=== PATIENT | male | born 1935 | race Caucasian/White ===

== ENCOUNTER 2019-04-23 12:14 | Day surgery (SDC) | payer MEDICARE, OTHER, SELFPAY ==
--- NOTE | 2019-04-20 07:29 | EKG12_ITS ---
Test Reason : PREOP Blood Pressure : / mmHG Vent. Rate : 054 BPM Atrial Rate : 054 BPM P-R Int : 174 ms QRS Dur : 104 ms QT Int : 438 ms P-R-T Axes : 047 012 028 degrees QTc Int : 415 ms Sinus bradycardia Incomplete right bundle branch block Confirmed by CHRISTY BORREGO, CHRISTINA ([id number]), supervising editor trailer CLARENCE BAZAN ([id number]) on 04/23/2019 1:20:15 PM Referred By: Delphine Estrada Confirmed By:CHRISTINA HARRISON MD
[2019-04-20 07:40] LABS: Hematocrit 36.2 % (40-54); Hemoglobin 11.7 g/dl (13.0-16.5); Mean Corp Hgb Conc 32.3 g/gl (32-36); Mean Corpuscular Hgb 26.3 pg (27.0-32.0); Mean Corpuscular Volume 81.3 fL (80-94); Mean Platelet Vol. 10.9 fl (6.2-12.0); Platelet Count 150 K/mm3 (150-450); RBC Distribution Width CV 14.9 % (11.6-14.6); RBC Distribution Width SD 43.2 fl (35.1-43.9); Red Blood Count 4.45 M/mm3 (4.6-6.2); White Blood Count 5.1 K/mm3 (4.4-11.0)
[2019-04-20 07:43] LABS: Scan Indicated on CBC? Y/N NO
[2019-04-20 08:02] LABS: Anion Gap 6 (5-15); BUN 20 mg/dL (7-18); BUN/Creat Ratio 19.4 RATIO (10-20); Calcium,Total 8.7 mg/dL (8.5-10.1); Chloride 109 mmol/L (98-107); Creatinine, Serum 1.03 mg/dL (0.70-1.30); EST Glomerular Filtration Rate 74 mL/min (>60); Est Glom Filt Rate - Afr Amer 89 mL/min (>60); Glucose 90 mg/dL (74-106); Potassium 4.3 mmol/L (3.5-5.1); Sodium Level 142 mmol/L (136-145)
--- NOTE | 2019-04-22 18:36 | PCM.PN.BLA ---
Progress Note See H&P scanned into the system No changes noted from that H&P - dated 04/16/19
[2019-04-23 12:39] VITALS: BP 115/76; PULSE 58; RESP 14; TEMP 36.7; O2SAT 98; BMI 25.5
[2019-04-23] MEDS: Cefazolin 2 GM in 0.9% Normal Saline 100 ML IV (13:53)
--- NOTE | 2019-04-23 13:54 | PCM.DC.HER ---
Discharge Diet: No Restrictions Discharge Activity: Return to Normal Activity, May not drive while taking narcotic pain medications. Lifting Restrictions: no lifting greater than 20 pounds for 4 weeks Call your doctor if your incision/area has: Continuous Slow Oozing, Foul Smelling Discharge Call your doctor if you observe: Fever of 101 or Higher Additional Dressing/Incision Instructions:: Leave dressing in place. May get wet in shower. Do not soak - no tub baths/swimming. You will have swelling and bruising in the area, do not be alarmed, this is normal. For significant scrotal swelling, can sit in recliner with legs elevated and place towel across upper thighs and then rest scrotum on top of this towel Additional Instructions: Ice packs to the area liberally for comfort. Recommended pain medication regimen: take 650 mg acetaminophen (Tylenol), then in three hours take 600 mg of ibuprofen (Motrin), then in 3 hours take 650 mg acetaminophen, then in three hours take 600 mg ibuprofen, and so on for about 2-3 days Take prescription narcotic pain medications for breakthrough pain and at night Allergies/Adverse Reactions: Allergies No Known Allergies Allergy (Verified 04/18/19 14:00) Medications to take at Discharge Aspirin [Aspir-Low] 81 mg PO DAILY 04/18/19 Atorvastatin Calcium [Lipitor] 20 mg PO QHS 04/18/19 Cyanocobalamin [Vitamin B12] 1,000 mcg IM Q30D 04/18/19 Ergocalciferol (Vitamin D2) [Vitamin D2] 50 mcg PO QWEEK 04/18/19 Finasteride [Proscar] 5 mg PO DAILY 04/18/19 Folic Acid 1 mg PO BID 04/18/19 Multivitamin [Multiple Vitamins] 1 ea PO DAILY 04/18/19 Ramipril [Altace] 1.25 mg PO DAILY 04/18/19 Ubidecarenone [Coq-10] 200 mg PO DAILY 04/18/19 Hydrocodone Bitart/Apap 5-325 [[place] 5MG-325MG] 1 tab PO Q8H PRN PRN 5 Days #15 tab 04/23/19 The following prescriptions were given: Hydrocodone Bitart/Apap 5-325 [[place] 5MG-325MG] 1 tab PO Q8H PRN PRN 5 Days #15 tab PRN Reason: Pain Prescription Printed Orders to be completed after discharge: 12 Lead EKG [[facility]] Time Frame: 04/18/19, Facility: [facility], Location: Cardiovascular Services Basic Metabolic Profile (BMP) Time Frame: 04/18/19, Facility: [facility], Location: Laboratory CBC-Complete Blood Cnt No Diff Time Frame: 04/18/19, Facility: [facility], Location: Laboratory Primary Care Physician: Loco Sims MD [Primary Care Provider] - Test Results: Test results from this visit will be discussed in further detail at your follow-up appointment, if applicable. Please Follow Up With: Delphine Estrada MD - call When: to be seen in 7-10 days, please call for date and time, thank you
--- NOTE | 2019-04-23 15:02 | OP.PCM_ITS ---
Report of Operation Date of Procedure: 04/23/19 Pre-Operative Diagnosis: right inguinal hernia Post-Operative Diagnosis: right inguinal hernia - direct and indirect Surgery/Procedure Performed:: right inguinal hernia - placement of preperitoneal mesh Description of Surgical Findings:: direct and indirect inguinal hernia noted, no femoral hernia Type of Anesthesia:: Local MAC Anesthesiologist: Morales Ingram Specimen's removed: none Estimated Blood Loss (mL): < 5 Fluids Replaced: 1000 ml RL Description of Procedure: After informed consent was obtained, patient was brought to the Operating Room. Appropriate time out protocol was followed. He was then placed in the supine position on the Operating Room table. The patient was then placed under anesthesia. The lower torso and the right groin area and genitalia were then prepped with a surgical skin preparation and appropriate sterile surgical drapes were placed. The anatomical landmarks were identified and after anesthetizing the skin and subcutaneous tissues with 1% xylocaine with epinephrine, a transverse skin incision was made above the level of the internal inguinal ring. The subcutaneous tissues were then sharply dissected down to the external oblique fascia and any hemorrhage was adequately controlled with electrocoagulation. The external oblique was then divided obliquely along the fibers and a muscle-splitting incision was then made to divide the internal oblique musculature and fascia. The transversalis fascia was then identified and was then incised parallel to the inferior hypogastric vessels. The preperitoneal space was then entered. Blunt dissection was then done to identify out Domenico's ligament, the pubic tubercle and a large area surrounding these landmarks for placement of the mesh. The femoral vessels were identified. The patient did not have a femoral hernia. The patient was also noted to have a fa scial defect in Hasselbach's triangle. There was an internal hernia sac identified. The peritoneal sac was then from the spermatic cord vessels using blunt dissection. The peritoneal sac was opened, there was no incarcerated contents. There was no evidence of any other opening in the peritoneum. The peritoneal opening that was created was then closed using a running 3-0 Vicryl suture. A medium size Bard 3 D mesh was then placed in the preperitoneal space such that it would be overlapping medially beyond the pubic tubercle and overlapping inferior to Domenico's ligament. A tack was then placed to secure the medial aspect of the mesh to the pubic tubercle. The mesh was then flattened up against the anterior abdominal wall. The patient was then placed in the reversed [place] position to ensure that the mesh was laid out properly. The mesh covered the entire wound opening also. The internal oblique fascia was then closed using interrupted 0 prolene suture. One of the sutures was used to lock the mesh into position. Hemostasis was carefully controlled with electrocoagulation. The external oblique fascia was then reapproximated using a running 0 Vicryl suture. This was carefully done to avoid any entrapment of blood vessels/nerves. Fior's fascia was closed using Vicryl suture in an interrupted simple fashion. The skin incision was closed with 4-0 Monocryl in a running subcuticular fashion. Cavilon and Steri-Strips were used to reinforce the skin closure and appropriate sterile dressing was applied. The patient was brought to the Recovery Room in stable condition. Grafts/Implants Used: Bard right sided 3D mesh, lot [id number], exp date 2023-09-13 - Complications none noted - Admit VTE Documentation VTE Present on Admission: Yes VTE Mechan Device Prophylaxis: SCD's
[2019-04-23 15:17] VITALS: BP 115/76; BP 125/71; PULSE 60; RESP 16; TEMP 36.7; O2SAT 100
[2019-04-23 15:22] VITALS: BP 115/76; BP 116/75; PULSE 63; RESP 16; O2SAT 98
[2019-04-23 15:27] VITALS: BP 115/76; BP 115/78; PULSE 64; RESP 16; O2SAT 97
[2019-04-23 15:32] VITALS: BP 115/76; BP 122/76; PULSE 62; RESP 16; TEMP 36.6; O2SAT 100
[2019-04-23 17:34] VITALS: BP 114/78; BP 115/76; PULSE 66; RESP 16; TEMP 36.8; O2SAT 99
== END 2019-04-23 17:36 | disposition home or self-care (01) ==
LOC: SDC 12:16 → AC 12:18
PROVIDERS: Family Provider Family Medicine; PCP Family Medicine; Referring Provider Surgery; Visit Provider Surgery
PROC: (CPT 49505; principal; 2019-04-23 13:45)
DX: K40.90 Unilateral inguinal hernia, without obstruction or gangrene, not specified as recurrent (principal); I25.10 Atherosclerotic heart disease of native coronary artery without angina pectoris; K21.9 Gastro-esophageal reflux disease without esophagitis; I10 Essential (primary) hypertension; N40.0 Benign prostatic hyperplasia without lower urinary tract symptoms; Z87.891 Personal history of nicotine dependence; Z95.5 Presence of coronary angioplasty implant and graft
CPT/HCPCS: 49505; 36415; 80048; 85027; 93005; J7120; C1781

== ENCOUNTER 2019-08-03 23:47 | Emergency (ER) | payer MEDICARE, OTHER, SELFPAY ==
[2019-08-03 23:48] VITALS: BP 136/86; PULSE 75; RESP 15; TEMP 36.5; O2SAT 98; BMI 25.8
--- NOTE | 2019-08-04 00:16 | CT_ITS ---
STUDY: CT BRAIN WITHOUT CONTRAST REASON FOR EXAM: Male, 83 years old. Weakness and confusion RADIATION DOSAGE (If Supplied By Facility): CTDIvol = ( 44.99 ) mGy, DLP = ( 815.79 ) mGycm TECHNIQUE: Transaxial CT imaging of the brain was performed without administration of intravenous contrast material. Individualized dose optimization techniques were used for this CT. COMPARISON: MRI of brain from 09/23/2017 FINDINGS: Normal soft tissue structures. Normal calvarium. Normal size ventricles and extra-axial spaces for the patient's age. There are areas of decreased attenuation within the white matter tracts of the supratentorial brain, consistent with microvascular disease changes. Normal basal ganglia and thalami. Normal brainstem. Normal cerebellum. There is no intracranial hemorrhage. There are no findings of an acute ischemic infarction. Normal visualized paranasal sinuses. CT/Brain/Head without Contrast IMPRESSION: Negative unenhanced CT scan of the brain for acute intracranial abnormality. Electronically Signed: Christopher Abdi, at 0:55 EDT Tel , Service support ,
--- NOTE | 2019-08-04 00:16 | RAD_ITS ---
STUDY: X-RAY CHEST REASON FOR EXAM: Male, 83 years old. Dizziness and confusion TECHNIQUE: PA and lateral COMPARISON: None. FINDINGS: The lungs are clear and expanded. There is no demonstrated pleural abnormality. Normal size heart. Normal mediastinum and andria. Normal visualized pulmonary arteries. There is atherosclerotic calcification of the aortic arch with tortuosity. Normal visualized thoracic spine. Normal visualized ribs, clavicles, and shoulders. There is no demonstrated abnormality of the visualized soft tissue structures of the upper abdomen. RAD/Chest PA and Lateral IMPRESSION: Negative x-ray examination of the chest. Electronically Signed: Christopher Abdi, at 0:57 EDT Tel , Service support ,
--- NOTE | 2019-08-04 00:16 | EKG12_ITS ---
Test Reason : Blood Pressure : / mmHG Vent. Rate : 064 BPM Atrial Rate : 064 BPM P-R Int : 158 ms QRS Dur : 110 ms QT Int : 416 ms P-R-T Axes : 063 020 034 degrees QTc Int : 429 ms Normal sinus rhythm Incomplete right bundle branch block Borderline ECG Confirmed by CHRISTY BORREGO, CHRISTINA ([id number]), online content editor ROBERT CHAVARRIA ([id number]) on 08/10/2019 11:18:42 AM Referred By: Confirmed By:CHRISTINA HARRISON MD
[2019-08-04 00:24] LABS: Absolute Lymphocyte Count 1.47 X10^3/uL (0.83-4.51); Absolute Neutrophil Count 3.5 X10^3/uL (2.0-7.7); Basophil# 0.04 X10^3/uL; Basophil% 0.7 % (0-1); Eosinophil# 0.25 X10^3/uL; Eosinophils% 4.3 % (0-5); Hematocrit 35.4 % (40-54); Hemoglobin 11.4 g/dL (13.0-16.5); Lymphocyte # 1.47 X10^3/ul (4.0); Lymphocyte % 25.2 % (19-41); Mean Corp Hgb Conc 32.2 g/dL (32-36); Mean Corpuscular Hgb 26.5 pg (27.0-32.0); Mean Corpuscular Volume 82.1 fL (80-94); Mean Platelet Vol. 11.3 fl (6.2-12.0); Monocyte# 0.62 X10^3/uL; Monocyte% 10.6 % (0-10); NRBC Flagged by Analyzer 0 % (0-5); Neutrophil # 3.45 X10^3/uL (2.7-7.7); Platelet Count 158 K/mm3 (150-450); RBC Distribution Width SD 45.1 fl (35.1-43.9); Red Blood Count 4.31 M/mm3 (4.6-6.2); White Blood Count 5.8 K/mm3 (4.4-11.0)
[2019-08-04] MEDS: Ondansetron 4 MG/2 ML Vial IV (00:29)
[2019-08-04 00:39] LABS: AST(SGOT) 31 U/L (15-37); Alanine Aminotransfer ALT/SGPT 29 U/L (16-61); Albumin, Serum 3.4 g/dL (3.2-5.0); Alkaline Phosphatase 93 U/L (45-117); Anion Gap 6 (5-15); BUN 19 mg/dL (7-18); BUN/Creat Ratio 17.9 RATIO (10-20); Calcium,Total 8.4 mg/dL (8.5-10.1); Chloride 106 mmol/L (98-107); Creatinine, Serum 1.06 mg/dL (0.70-1.30); EST Glomerular Filtration Rate 71 mL/min (>60); Est Glom Filt Rate - Afr Amer 86 mL/min (>60); Estimated Creatinine Clearance 56.43 ml/min; Globulin 3.3 g/dL (2.2-4.2); Glucose 104 mg/dL (74-106); Potassium 4.1 mmol/L (3.5-5.1); Protein, Total 6.7 g/dL (6.4-8.2); Sodium Level 140 mmol/L (136-145)
--- NOTE | 2019-08-04 00:47 | ED.DCSUM_ITS ---
- ER Visit Summary Date of Service: 08/04/19 Chief Complaint: Near syncope History of Present Illness: The patient is a 83 M who presents the emergency department feeling confused and near syncopal. He tells me that earlier today he felt fine. Him his and at the dinner he had spaghetti with sausage. He came home and took a shower. After the shower he felt that he needed to sit down. He felt like he might pass out and felt nauseated. He laid down and fell asleep. woke him up and she states that he seems a bit confused and seems to be walking funny. He denies any chest pain shortness of breath or headache. He denies any paresthesias loss of sensation or focal neurologic deficits. No visual changes. No changes in medications. He has a history of hypertension high cholesterol. He had a hernia repair earlier this year that he recovered fine from. He had a heart cath with stents placed in 2001. Physical Examination: Afebrile vital signs are stable Gen: Well-nourished well-developed Head: Normocephalic atraumatic Eyes: Perrl EOMI ENT: TMs clear no rhinorrhea moist mucous membranes Neck: Supple no lymphadenopathy no JVD nontender CVS: Regular rate rhythm no murmurs normal S1-S2 Respiratory: No distress clear to auscultation bilaterally chest nontender Abdomen: Soft nontender nondistended normal bowel sounds no masses Back: Nontender Extremity: Nontender no edema Skin: Normal color no rash Neuro: alert orientated ?3 CN II-XII intact normal strength sensation reflexes cerebellar NIH 0 Psych: Normal affect normal mood Test Results: EKG shows a normal sinus rhythm at a rate of 64. Patient's hemoglobin is 11.4 which is chronic for him. Rest of his labs are negative. Chest x-ray and CT brain negative. Emergency Department Course and Treatment: Patient ambulated to the bathroom without any difficulty. He is remained stable. At this point patient be discharged home return if worsening or concerns follow-up with primary care Impression: 1. Near syncope This note was generated with [employer]akimb[employer] software. It may contain incorrect words, spelling, and punctuation that were not noted in review of the chart prior to signing ED Disposition - Plan for ED Patient: Disposition: Home or Assisted Living Instructions: NEAR SYNCOPE, Unknown Referrals: Loco Sims MD [Primary Care Provider] - 1 Week
[2019-08-04 01:02] LABS: Mucous, Urine 0 SEEN /hpf (<or=2+); Red Blood Cells-Urine 0 SEEN /hpf (0-5); Squamous Epithelial Cells - UA 0 SEEN /hpf (0-5); White Blood Cells 0 SEEN /hpf (0-5)
[2019-08-04 01:03] LABS: Color, Urine Yellow (Yellow); Glucose, Dipstick Normal (Normal); Ketone-Dipstick Negative (Negative); Leukocyte Esterase-Dipstick Negative /ul (Negative); Nitrite-Dipstick Negative (Negative); Occult Blood-Urine Negative /ul (Negative); Protein-Dipstick Negative (Negative); Urine Bilirubin Dipstick Negative (Negative); Urine Clarity Clear (Clear); Urine Urobilinogen Normal (Normal)
[2019-08-04 01:10] LABS: Bacteria RARE /hpf (None Seen)
[2019-08-04 01:46] VITALS: BP 122/72; PULSE 98; RESP 16; O2SAT 97
== END 2019-08-04 02:13 | disposition home or self-care (01) ==
PROVIDERS: Emergency Provider Emergency Medicine; Family Provider Family Medicine; PCP Family Medicine
DX: R55 Syncope and collapse (principal); E78.00 Pure hypercholesterolemia, unspecified; I10 Essential (primary) hypertension; R11.0 Nausea; Z87.891 Personal history of nicotine dependence
CPT/HCPCS: 70450; 71046; 80053; 81001; 84484; 85025; 93005; 96374; 99284; J2405

== ENCOUNTER → 2020-06-12 06:28 | Outpatient (CLI) | payer MEDICARE, OTHER, SELFPAY ==
[2020-05-28 15:05] VITALS: BMI 25.8
--- NOTE | 2020-06-12 06:29 | ECHOD_ITS ---
Reason For Study: CAD/ASHD Procedure This was a 2D Doppler, Color Flow transthoracic echocardiogram. Exam performed in department. Left Ventricle Normal LV size. Left ventricular systolic function is normal. The estimated ejection fraction is 65 %. Stage 1 diastolic dysfunction. No regional wall motion abnormalities noted. Right Ventricle Normal RV size. Normal systolic function. Atria Normal left atrium. Normal right atrium. Hypermobile atrial septum. Bubble contrast study negative for right to left interatrial shunt. Mitral Valve There is moderate mitral annular calcification. Mild (1+) eccentric mitral valve insufficiency. Tricuspid Valve Normal tricuspid valve. Mild (1+) tricuspid valve insufficiency. Pulmonary artery systolic pressure is 33 mmHg. Aortic Valve Trisinus/trileaflet aortic valve. Moderate focal aortic valve calcification. Aortic sclerosis, no stenosis. Pulmonic Valve Normal pulmonic valve. Great Vessels Normal aortic root. The pulmonary artery is normal size. Normal inferior vena cava. Pericardium/Pleural No pericardial effusion. Medication Performed a rapid injection of agitated mix of 9 cc saline and 1cc air to assess for atrial septal defect. MMode/2D Measurements & Calculations LVIDd: 4.4 cm IVSd: 1.2 cm Ao root diam: 3.3 cm LVIDs: 2.9 cm LVPWd: 1.1 cm RVDd: 4.7 cm FS: 34.0 % LAV(MOD-bp): 70.1 ml LA A4 area: 20.4 cm2 LA dimension(2D): 3.3 cm LAV(MOD-bp) Indexed: 35.9 ml/m2 LAV(MOD-sp2): 78.4 ml LAV(MOD-sp4): 58.9 ml RA A4 area: 21.2 cm2 Doppler Measurements & Calculations MV E max enrique: 70.6 cm/sec Lat Peak E' Enrique: 6.1 cm/sec Med Peak E' Enrique: 5.4 cm/sec MV A max enrique: 90.6 cm/sec E/E' lat: 11.5 E/E' med: 13.2 MV E/A: 0.78 Ao V2 max: 144.9 cm/sec LV V1 max: 125.5 cm/sec PA V2 max: 151.2 cm/sec Ao max P.4 mmHg LV V1 max P.3 mmHg Ao V2 mean: 95.1 cm/sec Ao mean P.0 mmHg Ao V2 VTI: 27.4 cm TR max enrique: 273.0 cm/sec TR max P.8 mmHg Interpretation Summary Hypermobile atrial septum. Normal LV size. Left ventricular systolic function is normal. The estimated ejection fraction is 65 %. Pulmonary artery systolic pressure is 33 mmHg. Stage 1 diastolic dysfunction. Moderate focal aortic valve calcification. Aortic sclerosis, no stenosis. Ordering Physician: Alex Andrade Referring Physician: Loco Sims Performed By: Sera Prater, SEANCS, RVT
--- NOTE | 2020-06-12 08:44 | STRESSREP ---
Stress Test Report Exercise myocardial perfusion stress test. 84-year-old male with a history of chest pain. Stress protocol: Resting EKG demonstrates sinus bradycardia with a rate of 56 bpm normal intervals are noted resting blood pressure is 154/84 mmHg. The patient exercised according to regular Jagdish protocol for a total duration of 7 minutes and 31 seconds. The maximum heart rate attained was 150 bpm which was 108% of maximum predicted heart rate the maximum workload was 9.3 metabolic equivalents. At rest there were no ST or T wave changes noted to suggest ischemia peak exercise upsloping ST changes were noted with no meet the criteria for ischemia. No clinical angina was noted the test was terminated due to dyspnea. The resting blood pressure was 154/84 with a peak blood pressure 162/74 which was normal blood pressure response to exercise. Myocardial perfusion protocol. 11.5 mCi of technetium 99m sestamibi was injected at rest. The patient exercised according to regular Jagdish protocol and at peak exercise 32.1 mCi of technetium 99m sestamibi was injected stress images were obtained stress and rest images were reconstructed and compared in the short axis vertical long horizontal long axis. Gated images were also obtained Perfusion SPECT analysis: Review of the stress images demonstrate normal uptake of tracer noted in all areas of the myocardium the resting images similar demonstrate normal uptake of tracer noted in all areas of the myocardium. No areas of reversibility are noted suggest ischemia no previous infarct is noted. Gated SPECT analysis: The gated ejection fraction is 72%. Conclusion: Normal exercise myocardial perfusion stress test. Preserved ejection fraction. Excellent functional capacity.
== END ==
PROVIDERS: PCP Family Medicine; Referring Provider Internal Medicine Cardiovascular Disease; Visit Provider Internal Medicine Cardiovascular Disease
DX: R55 Syncope and collapse (principal); I25.10 Atherosclerotic heart disease of native coronary artery without angina pectoris; Z95.5 Presence of coronary angioplasty implant and graft
CPT/HCPCS: 78452; 93017; 93306; A9500; A4216

== ENCOUNTER → 2020-07-17 12:52 | Outpatient (CLI) | payer MEDICARE, OTHER, SELFPAY ==
[2020-05-28 15:05] VITALS: BMI 25.8
== END ==
PROVIDERS: PCP Family Medicine; Referring Provider Physician Assistant Medical; Visit Provider Physician Assistant Medical
DX: I25.10 Atherosclerotic heart disease of native coronary artery without angina pectoris (principal); I45.10 Unspecified right bundle-branch block; R00.1 Bradycardia, unspecified
CPT/HCPCS: 93225; 93226

== ENCOUNTER 2021-10-16 11:20 | Emergency (ER) | payer MEDICARE, OTHER, SELFPAY ==
[2021-10-16 11:21] VITALS: BP 150/83; PULSE 59; RESP 16; TEMP 36.8; O2SAT 98; BMI 25.8
--- NOTE | 2021-10-16 12:31 | EKG12_ITS ---
Test Reason : DIZZINESS Blood Pressure : / mmHG Vent. Rate : 055 BPM Atrial Rate : 055 BPM P-R Int : 170 ms QRS Dur : 104 ms QT Int : 454 ms P-R-T Axes : 019 003 017 degrees QTc Int : 434 ms Sinus bradycardia Increased R/S ratio in V1, consider early transition or posterior infarct Abnormal ECG Confirmed by ISAAC BORREGO, MERON ([id number]), communications editor BALDEV MASSEY ([id number]) on 10/21/2021 11:02:54 AM Referred By: MELY Confirmed By:MERON GRAY MD
--- NOTE | 2021-10-16 12:31 | CT_ITS ---
STUDY: CT BRAIN WITHOUT CONTRAST REASON FOR EXAM: Male, 85 years old. Dizziness, concern for intracranial hemorrhage. RADIATION DOSAGE (If Supplied By Facility): CTDIvol = ( 44.99 ) mGy, DLP = ( 829.85 ) mGycm TECHNIQUE: Transaxial CT imaging of the brain was performed without administration of intravenous contrast material. Individualized dose optimization techniques were used for this CT. COMPARISON: No relevant priors. FINDINGS: Normal soft tissue structures. Normal calvarium. Normal size ventricles and extra-axial spaces for the patient''s age. There are areas of decreased attenuation within the white matter tracts of the supratentorial brain, consistent with microvascular disease changes. Normal basal ganglia and thalami. Normal brainstem. Normal cerebellum. There is no intracranial hemorrhage. There are no findings of an acute ischemic infarction. Atherosclerotic calcifications of the cavernous internal carotid arteries. Mild posterior thickening of the right maxillary sinus. CT/Brain/Head without Contrast IMPRESSION: No acute intracranial process. Electronically Signed: Brian Molina, at 13:11 EST Tel , Service support ,
--- NOTE | 2021-10-16 12:33 | EX.ED.DYSGE1 ---
HPI History of Present Illness Chief Complaint: Dizziness Detail of Chief Complaint: Dizziness Informant: patient Narrative Narrative: Patient presents to the emergency department complaint of dizziness that started this morning. Patient states that he went to the bathroom when he came back and laid on the bed he felt like things were spinning around and round. Patient states that when he looks up quickly he has the sensation like he is in a pass out. Patient denies any chest pain or shortness of breath. He has not had symptoms like this before. Denies recent illness. He does have history of anemia, BPH, high cholesterol, and CHF. Patient has had his Covid vaccine and booster. Prior similar symptoms: No PFSH PFSH Medical History Anemia Atherosclerotic heart disease of [place] coronary artery without angina pectoris BPH (benign prostatic hyperplasia) Bradycardia Chronic diastolic (congestive) heart failure Diverticulosis GERD (gastroesophageal reflux disease) Hyperlipidemia Kidney stones Mitral annular calcification Pulmonary nodule Right bundle branch block (RBBB) Home Medications aspirin 81 mg PO DAILY 04/18/19 [History Last Taken Unknown] atorvastatin 20 mg PO QHS 04/18/19 [History Last Taken Unknown] coenzyme Q10 200 mg PO QHS 04/18/19 [History Last Taken Unknown] folic acid 1 mg PO BID 04/18/19 [History Last Taken Unknown] multivitamin 1 ea PO DAILY 04/18/19 [History Last Taken Unknown] cholecalciferol (vitamin D3) 1,250 mcg (50,000 unit) capsule 1,250 mcg PO QWEEK 05/28/20 [History Last Taken Unknown] sildenafil 50 mg tablet 50 mg PO DAILY PRN 05/28/20 [History Last Taken Unknown] metoprolol tartrate 25 mg tablet 12.5 mg PO BID #30 tab 10/28/20 [Rx Last Taken Unknown] cyanocobalamin (vitamin B-12) 1,000 mcg/mL injection solution 1,000 mcg IM Q4W PRN ml 06/04/21 [History Last Taken Unknown] meclizine 25 mg PO TID PRN #14 tab 10/16/21 [Rx Last Taken Unknown] ondansetron 4 mg PO Q8H PRN PRN #10 tab 10/16/21 [Rx Last Taken Unknown] Allergy/AdvReac Type Severity Reaction Status Date / Time No Known Allergies Allergy Verified 10/16/21 11:23 Family History Mother Heart disease Brother Cancer Brother Cancer Surgical History History of coronary artery stent placement (07/19/02) History of herniorrhaphy History of left heart catheterization (07/18/02) History of shoulder surgery Social History Smoking Status: Former smoker ROS ROS ED ROS Narrative Dizziness Constitutional Constitutional ED: Reports systems reviewed and no addt'l complaints, except as documented; Denies body ache(s), change in weight or chills Eyes Eyes: Denies acute decrease in peripheral vision, change in vision, double vision or loss of vision ENT ENT ED: Reports none; Denies ear pain, lip swelling, loss taste/smell, neck pain, otalgia or sore throat Cardiovascular Cardiovascular: Reports none; Denies abdominal pain, chest pain with activity, leg edema, lightheadedness, palpitations, rapid heart rate or syncope Respiratory/Chest Respiratory/Chest: Reports none; Denies change in mental status, dry cough, dyspnea, hemoptysis, shortness of breath at rest or shortness of breath with exertion Gastrointestinal Gastrointestinal: Reports none; Denies abdominal pain, change in stool character, diarrhea, hematemesis, hematochezia, melena, rectal bleeding or vomiting Genitourinary Genitourinary ED: Reports none; Denies abdominal discomfort, anuria, dysuria, genital pain or polyuria Musculoskeletal Musculoskeletal: Reports none; Denies arthralgias, back pain, difficulty walking, extremity pain, muscle weakness or myalgias Integumentary Reports none; Denies abscess or rash Neurologic Neurologic: Reports none; Denies abnormal gait, confusion, focal weakness, frequent falls, headache(s), loss of vision, numbness, paresthesias, radicular pain, vertigo or weakness Psychiatric Psychiatric: Reports systems reviewed and no addt'l complaints, except as documented and none; Denies behavioral changes, confusion, difficulty concentrating, hallucinations, suicidal ideation, tactile hallucinations or visual hallucinations Endocrine Endocrinology: Denies none, cold intolerance, excessive sweating, fatigue or heat intolerance Hematologic/Lymphatic Hematologic/Lymphatic: Reports none; Denies anemia, easy bleeding or easy bruising Allergic/Immunologic Allergic/Immunologic ED: Denies as per HPI, none, lip swelling, mouth swelling, throat swelling, tongue swelling or hives EXAM Physical Exam Const Vital Signs: 10/16/21 11:21 10/16/21 12:14 10/16/21 13:59 Temperature 98.2 F Temperature Source Temporal Pulse Rate 59 L Pulse Rate [Lying] 55 L Pulse Rate [Sitting] 65 Pulse Rate [Standing] 70 Respiratory Rate 16 Respiratory Effort Normal Non-Labored Blood Pressure 150/83 H Blood Pressure [Lying] 139/75 H Blood Pressure [Sitting] 147/81 H Blood Pressure [Standing] 166/73 H Blood Pressure Mean 105 Blood Pressure Mean [Lying] 96 Blood Pressure Mean [Sitting] 103 Blood Pressure Mean [Standing] 104 Pulse Ox 98 Oxygen Delivery Method Room Air Positive well nourished and well developed General Appearance ED: well developed and NAD HEENT Reports TM's clear and moist mucous membranes normocephalic and atraumatic; Negative for trauma or tenderness Tympanic Membrane ED: Yes TM's clear Eyes PERRL and EOMs intact bilaterally General Eye ED: Negative for pale conjunctiva or scleral icterus Neck no lymphadenopathy, supple and no JVD General: Negative for tenderness Chest Wall inspection of chest normal and palpation of chest normal Chest: Negative for tenderness Resp normal respiratory effort and clear to auscultation bilaterally Effort and Inspection: Negative for respiratory distress or pain with movement Auscultation: Negative for rhonchi, wheezes or diminished lung sounds Cardio regular rate, regular rhythm, S1 normal heart sound, S2 normal heart sound and no murmurs Peripheral Pulses: pulses 2+ throughout GI normal to inspection, nondistended, normoactive bowel sounds, soft to palpation, non-tender, non-distended and no masses Back/Spine no CVA tenderness and no thoracic nor lumbar tenderness Extremity normal to inspection Extremity Narrative: Hallpike maneuver was negative for nystagmus General Extremety ED: Negative for edema General Extremity: Negative for edema Neuro oriented x3, CN's II-XII intact bilaterally, no sensory deficits noted and gait normal Neuro Narrative: Finger-nose and heel rowe testing within normal limits, negative Romberg, negative pronator drift. Hallpike maneuver performed did not elicit any nystagmus or symptoms. Sensorium / Orientation: awake, alert, oriented to person, oriented to place and oriented to time Motor Exam: strength 5/5 throughout and strength abnormal Psych mental status grossly normal Skin no rashes or lesions noted and no wounds MDM MDM MDM Narrative Medical decision making narrative: IV line established on arrival. Orthostatic vital signs were negative. Patient was given Antivert and Zofran and is dizziness essentially resolved. Scan of his brain was unremarkable and lab work and EKG were unremarkable. At this point suspect likely benign positional vertigo. He is advised to follow-up with ENT. Patient given a prescription for Zofran and Antivert. Patient advised to return if condition should worsen anyway. Lab Data Attestation: I reviewed the patient's lab results. Labs: Laboratory Results - last 24 hr 10/16/21 10/16/21 12:11 12:11 WBC 6.3 RBC 4.14 L Hgb 10.9 L Hct 33.7 L MCV 81.4 MCH 26.3 L MCHC 32.3 RDW Std Deviation 42.3 RDW Coeff of Radu 14.6 Plt Count 167 MPV 11.0 Immature Gran % (Auto) 0.300 Neut % (Auto) 80.0 H Lymph % (Auto) 11.6 L [place] % (Auto) 6.8 Eos % (Auto) 0.8 Baso % (Auto) 0.5 Absolute Neuts (auto) 5.0 Absolute Lymphs (auto) 0.73 L Nucleated RBC % 0 Sodium 140 Potassium 4.6 Chloride 109 H Carbon Dioxide 27.0 Anion Gap 4 L BUN 17 Creatinine 0.96 Estim Creat Clear Calc 58.30 Est GFR (MDRD) Af Amer 96 Est GFR (MDRD) Non-Af 79 BUN/Creatinine Ratio 17.7 Glucose 89 Calcium 8.9 Troponin I High Sens 8 Radiography Diagnostic Testing: Clinical Impression(s) from Imaging Studies Brain CT 10/16/21 12:31 IMPRESSION: No acute intracranial process. Electronically Signed: Brian Molina, at 13:11 EST Tel , Service support , Discharge Plan Triage Chief Complaint: Dizziness ED Provider: Ashleigh Veloz Dx/Rx/DC Orders Clinical Impression: Vertigo Instructions: Dizziness Vertigo and Balance ..., ED Vertigo, Unspecified Prescriptions: New ondansetron [ondansetron] 4 MG tablet 4 mg PO Q8H PRN PRN (Reason: Nausea) Qty: 10 RF: 0 meclizine 25 mg tablet 25 mg PO TID PRN (Reason: dizziness) Qty: 14 RF: 0 No Action cholecalciferol (vitamin D3) 1,250 mcg (50,000 unit) capsule 1,250 mcg PO QWEEK RF: 0 sildenafil [Viagra] 50 mg tablet 50 mg PO DAILY PRNRF: 0 multivitamin 1 EACH tablet 1 ea PO DAILY RF: 0 atorvastatin 20 MG tablet 20 mg PO QHS RF: 0 aspirin 81 MG tablet,delayed release (DR/EC) 81 mg PO DAILY RF: 0 folic acid 1 MG tablet 1 mg PO BID RF: 0 coenzyme Q10 100 MG capsule 200 mg PO QHS RF: 0 cyanocobalamin (vitamin B-12) 1,000 mcg/mL solution 1,000 mcg IM Q4W PRNRF: 0 metoprolol tartrate 25 mg tablet 12.5 mg PO BID Qty: 30 RF: 6 Primary Care Provider: Loco Sims Referrals: Darrian Castelan MD [STAFF PHYSICIAN] - 3-5 Days Loco Sims MD [Primary Care Provider] - 3-5 Days Disposition Disposition: Home, Self Care
[2021-10-16] MEDS: Meclizine HCl 25 MG Tablet PO (12:44)
[2021-10-16] MEDS: 0.9% Normal Saline 1,000 ML 150 ML IV (12:44)
[2021-10-16] MEDS: Ondansetron 4 MG/2 ML Vial IV (12:44)
[2021-10-16 12:45] LABS: Absolute Lymphocyte Count 0.73 X10^3/uL (0.83-4.51); Basophil# 0.03 X10^3/uL; Basophil% 0.5 % (0-1); Eosinophil# 0.05 X10^3/uL; Eosinophils% 0.8 % (0-5); Hematocrit 33.7 % (40-54); Hemoglobin 10.9 g/dL (13.0-16.5); Lymphocyte # 0.73 X10^3/ul (0.83-4.51); Lymphocyte % 11.6 % (19-41); Mean Corp Hgb Conc 32.3 g/dL (32-36); Mean Corpuscular Hgb 26.3 pg (27.0-32.0); Mean Corpuscular Volume 81.4 fL (80-94); Monocyte# 0.43 X10^3/uL; Monocyte% 6.8 % (0-10); NRBC Flagged by Analyzer 0 % (0-5); Neutrophil # 5.04 X10^3/uL (2.7-7.7); Platelet Count 167 K/mm3 (150-450); RBC Distribution Width CV 14.6 % (11.6-14.6); RBC Distribution Width SD 42.3 fl (35.1-43.9); Red Blood Count 4.14 M/mm3 (4.6-6.2); White Blood Count 6.3 K/mm3 (4.4-11.0)
[2021-10-16 12:59] LABS: Anion Gap 4 (5-15); BUN 17 mg/dL (7-18); BUN/Creat Ratio 17.7 RATIO (10-20); Calcium,Total 8.9 mg/dL (8.5-10.1); Chloride 109 mmol/L (98-107); Creatinine, Serum 0.96 mg/dL (0.70-1.30); EST Glomerular Filtration Rate 79 mL/min (>60); Est Glom Filt Rate - Afr Amer 96 mL/min (>60); Glucose 89 mg/dL (74-106); Potassium 4.6 mmol/L (3.5-5.1); Sodium Level 140 mmol/L (136-145); Troponin-I HS 8 pg/mL (3.0-78.0)
[2021-10-16 13:59] VITALS: BP 139/75; BP 147/81; BP 166/73; PULSE 55; PULSE 65; PULSE 70
== END 2021-10-16 14:48 | disposition home or self-care (01) ==
PROVIDERS: Emergency Provider Emergency Medicine; PCP Family Medicine
DX: R42 Dizziness and giddiness (principal); I25.10 Atherosclerotic heart disease of native coronary artery without angina pectoris; Z87.891 Personal history of nicotine dependence
CPT/HCPCS: 70450; 80048; 84484; 85025; 93005; 96361; 96374; 99284; J7030; A4216; J2405

== ENCOUNTER 2022-01-27 17:59 | Emergency (ER) | payer MEDICARE, OTHER, SELFPAY ==
[2022-01-27 17:59] VITALS: BP 134/78; PULSE 75; RESP 14; TEMP 36.7; O2SAT 96; BMI 25.2
[2022-01-27 18:16] VITALS: BP 134/77; PULSE 71; RESP 14; O2SAT 96
--- NOTE | 2022-01-27 18:23 | EKG12_ITS ---
Test Reason : Blood Pressure : / mmHG Vent. Rate : 062 BPM Atrial Rate : 062 BPM P-R Int : 142 ms QRS Dur : 100 ms QT Int : 416 ms P-R-T Axes : 080 006 018 degrees QTc Int : 422 ms Normal sinus rhythm Normal ECG Confirmed by ENDY BORREGO, CIARA ([id number]), science editor CLARENCE BAZAN ([id number]) on 01/29/2022 1:00:50 PM Referred By: Confirmed By:MARIXA SCHUMACHER MD
--- NOTE | 2022-01-27 18:35 | RAD_ITS ---
STUDY: X-RAY CHEST REASON FOR EXAM: Male, 86 years old. Chest pain TECHNIQUE: Single frontal view of the chest. COMPARISON: 08/04/2019. FINDINGS: Focal opacity at the right apex. Normal size heart. Normal mediastinum and andria. Normal visualized pulmonary arteries. Normal visualized aortic arch and descending thoracic aorta. Normal visualized thoracic spine. Normal visualized ribs, clavicles, and shoulders. There is no demonstrated abnormality of the visualized soft tissue structures of the upper abdomen. RAD/Chest 1 View (Portable) IMPRESSION: Focal opacity at the right apex is better assessed on concurrent chest CT and represents a large solid mass. Electronically Signed: Bernabe Hanson MD at 19:46 EDT ,
[2022-01-27 18:45] LABS: Absolute Lymphocyte Count 0.94 X10^3/uL (0.83-4.51); Absolute Neutrophil Count 10.6 X10^3/uL (2.0-7.7); Basophil# 0.05 X10^3/uL; Basophil% 0.4 % (0-1); Eosinophil# 0.16 X10^3/uL; Eosinophils% 1.3 % (0-5); Hematocrit 31.3 % (40-54); Lymphocyte # 0.94 X10^3/ul (0.83-4.51); Lymphocyte % 7.3 % (19-41); Mean Corp Hgb Conc 31.9 g/dL (32-36); Mean Corpuscular Hgb 24.6 pg (27.0-32.0); Mean Corpuscular Volume 76.9 fL (80-94); Mean Platelet Vol. 10.5 fl (6.2-12.0); Monocyte# 0.97 X10^3/uL; Monocyte% 7.6 % (0-10); NRBC Flagged by Analyzer 0 % (0-5); Neutrophil # 10.63 X10^3/uL (2.7-7.7); Platelet Count 271 K/mm3 (150-450); RBC Distribution Width CV 14.9 % (11.6-14.6); RBC Distribution Width SD 41.1 fl (35.1-43.9); Red Blood Count 4.07 M/mm3 (4.6-6.2); White Blood Count 12.8 K/mm3 (4.4-11.0)
[2022-01-27 18:57] LABS: Anion Gap 4 (5-15); BUN 21 mg/dL (7-18); BUN/Creat Ratio 20.6 RATIO (10-20); Calcium,Total 8.9 mg/dL (8.5-10.1); Chloride 105 mmol/L (98-107); Creatinine, Serum 1.02 mg/dL (0.70-1.30); EST Glomerular Filtration Rate 74 mL/min (>60); Est Glom Filt Rate - Afr Amer 90 mL/min (>60); Estimated Creatinine Clearance 55.66 ml/min; Glucose 95 mg/dL (74-106); Potassium 4.1 mmol/L (3.5-5.1); Sodium Level 136 mmol/L (136-145)
[2022-01-27 19:04] LABS: Troponin-I HS (w/2H Reflex) < 3 pg/mL (3.0-78.0)
[2022-01-27 19:05] LABS: D-Dimer Quantitative (DVT/PE) 2.28 FEU/ug/m (0.27-0.49)
--- NOTE | 2022-01-27 19:06 | CT_ITS ---
STUDY: CTA CHEST REASON FOR EXAM: Male, 86 years old. PE RADIATION DOSAGE (If Supplied By Facility): CTDIvol = ( 7.88 ) mGy, DLP = ( 253.74 ) mGycm TECHNIQUE: The examination was performed with the intravenous administration of IV 100mL Isovue-300. Post-processing of the angiographic images was performed, with multiplanar reformation and 3D reconstruction. Individualized dose optimization techniques were used for this CT. COMPARISON: None. FINDINGS: Low density overlying the PE study is Normal enhancement of the main pulmonary artery and right and left pulmonary arteries. Normal enhancement of the bilateral peripheral pulmonary arteries. There is no demonstrated pulmonary embolism. Normal thoracic aorta and visualized great vessels. There is no demonstrated aortic dissection. There are calcifications of the coronary arteries. Normal mediastinum. Ill-defined right hilar lymphadenopathy. Normal visualized trachea and bronchi. The lungs are well expanded. Large solid mass at the right apex measures 5.7 x 5.3 x 7.2 cm. Normal pleura. Normal chest wall structures. There are degenerative changes of thoracic spine. Incompletely characterized left adrenal mass. CT/CTA Chest W/WO Contrast IMPRESSION: No pulmonary embolism or aortic dissection. Large right apical solid mass lesion and associated right hilar lymphadenopathy. Recommend further evaluation with tissue sampling and/or PET/CT. Left adrenal mass may indicate metastases. It is incompletely characterized. Electronically Signed: Bernabe Hanson MD at 20:30 EDT ,
[2022-01-27 19:09] VITALS: BP 118/68; PULSE 65; RESP 18; O2SAT 96
[2022-01-27] MEDS: Aspirin 81 MG TAB.CHEW 324 MG PO (19:12)
[2022-01-27 20:00] VITALS: BP 129/71; PULSE 64; RESP 18; O2SAT 98
--- NOTE | 2022-01-27 20:29 | EDS_ITS ---
HPI History of Present Illness Chief Complaint: Chest Pain Informant: patient Onset/Context/Timing Onset: Days (10 days) Context: Gradual Onset Timing: Waxes and wanes Current Severity: Mild Maximum Severity: Moderate Narrative Narrative: Patient presents with 10-day history of waxing and waning chest pain and shortness of breath. He does report mild cough. No fever or chills. Symptoms not necessarily worse with exertion. He went to urgent care today who referred him to the emergency room for follow-up. [facility] Medical History Anemia Atherosclerotic heart disease of [place] coronary artery without angina pectoris BPH (benign prostatic hyperplasia) Bradycardia Chronic diastolic (congestive) heart failure Diverticulosis GERD (gastroesophageal reflux disease) Hyperlipidemia Kidney stones Mitral annular calcification Pulmonary nodule Right bundle branch block (RBBB) Home Medications aspirin 81 mg PO DAILY 04/18/19 [History Last Taken Unknown] atorvastatin 20 mg PO QHS 04/18/19 [History Last Taken Unknown] coenzyme Q10 200 mg PO QHS 04/18/19 [History Last Taken Unknown] folic acid 1 mg PO BID 04/18/19 [History Last Taken Unknown] multivitamin 1 ea PO DAILY 04/18/19 [History Last Taken Unknown] cholecalciferol (vitamin D3) 1,250 mcg (50,000 unit) capsule 1,250 mcg PO QWEEK 05/28/20 [History Last Taken Unknown] sildenafil 50 mg tablet 50 mg PO DAILY PRN 05/28/20 [History Last Taken Unknown] metoprolol tartrate 25 mg tablet 12.5 mg PO BID #30 tab 10/28/20 [Rx Last Taken Unknown] cyanocobalamin (vitamin B-12) 1,000 mcg/mL injection solution 1,000 mcg IM Q4W PRN ml 06/04/21 [History Last Taken Unknown] meclizine 25 mg PO TID PRN #14 tab 10/16/21 [Rx Last Taken Unknown] ondansetron 4 mg PO Q8H PRN PRN #10 tab 10/16/21 [Rx Last Taken Unknown] Allergy/AdvReac Type Severity Reaction Status Date / Time No Known Allergies Allergy Verified 01/27/22 18:01 Family History Mother Heart disease Brother Cancer Brother Cancer Surgical History History of coronary artery stent placement (07/19/02) History of herniorrhaphy History of left heart catheterization (07/18/02) History of shoulder surgery Social History Smoking Status: Former smoker ROS ROS ED Constitutional Constitutional ED: Denies chills or fever(s) Eyes Eyes: Denies change in vision ENT ENT ED: Denies sore throat Cardiovascular Cardiovascular: Reports chest pain; Denies palpitations or racing heartbeat Respiratory/Chest Respiratory/Chest: Reports cough and dyspnea Gastrointestinal Gastrointestinal: Denies abdominal pain, diarrhea, nausea or vomiting Genitourinary Genitourinary ED: Denies dysuria Musculoskeletal Musculoskeletal: Denies back pain or neck pain Integumentary Denies rash Neurologic Neurologic: Denies headache(s) or weakness Allergic/Immunologic Allergic/Immunologic ED: Denies urticaria EXAM Physical Exam Const Vital Signs: 01/27/22 17:59 01/27/22 18:16 01/27/22 18:26 Temperature 98.1 F Temperature Source Temporal Pulse Rate 75 71 Respiratory Rate 14 14 Blood Pressure 134/78 H 134/77 H Blood Pressure Mean 96 96 Pulse Ox 96 96 Oxygen Delivery Method Room Air Room Air Room Air 01/27/22 19:09 01/27/22 20:00 01/27/22 21:07 Temperature 98.4 F Temperature Source Pulse Rate 65 64 78 Respiratory Rate 18 18 16 Blood Pressure 118/68 129/71 H 136/76 H Blood Pressure Mean 84 90 Pulse Ox 96 98 98 Oxygen Delivery Method Room Air Room Air Positive well nourished and well developed General Appearance ED: well developed HEENT Reports moist mucous membranes Eyes PERRL and EOMs intact bilaterally Neck supple Chest Wall inspection of chest normal and palpation of chest normal Resp normal respiratory effort and clear to auscultation bilaterally Cardio regular rate and regular rhythm GI normal to inspection, nondistended, normoactive bowel sounds and non-tender Palpation: soft Extremity normal to inspection Neuro oriented x3 and no sensory deficits noted Sensorium / Orientation: alert Motor Exam: strength 5/5 throughout Psych mental status grossly normal Skin no rashes or lesions noted MDM MDM MDM Narrative Medical decision making narrative: EKG, chest x-ray, lab work obtained. Lab Data Attestation: I reviewed the patient's lab results. Labs: Laboratory Results - last 24 hr 01/27/22 01/27/22 01/27/22 18:30 18:30 18:30 WBC 12.8 H RBC 4.07 L Hgb 10.0 L Hct 31.3 L MCV 76.9 L MCH 24.6 L MCHC 31.9 L RDW Std Deviation 41.1 RDW Coeff of Radu 14.9 H Plt Count 271 MPV 10.5 Immature Gran % (Auto) 0.400 Neut % (Auto) 83.0 H Lymph % (Auto) 7.3 L [place] % (Auto) 7.6 Eos % (Auto) 1.3 Baso % (Auto) 0.4 Absolute Neuts (auto) 10.6 H Absolute Lymphs (auto) 0.94 Nucleated RBC % 0 D-Dimer Quant (PE/DVT) 2.28 H* Sodium 136 Potassium 4.1 Chloride 105 Carbon Dioxide 27.0 Anion Gap 4 L BUN 21 H Creatinine 1.02 Estim Creat Clear Calc 55.66 Est GFR (MDRD) Af Amer 90 Est GFR (MDRD) Non-Af 74 BUN/Creatinine Ratio 20.6 H Glucose 95 Calcium 8.9 Troponin I High Sens 01/27/22 01/27/22 18:30 21:00 WBC RBC Hgb Hct MCV MCH MCHC RDW Std Deviation RDW Coeff of Radu Plt Count MPV Immature Gran % (Auto) Neut % (Auto) Lymph % (Auto) [place] % (Auto) Eos % (Auto) Baso % (Auto) Absolute Neuts (auto) Absolute Lymphs (auto) Nucleated RBC % D-Dimer Quant (PE/DVT) Sodium Potassium Chloride Carbon Dioxide Anion Gap BUN Creatinine Estim Creat Clear Calc Est GFR (MDRD) Af Amer Est GFR (MDRD) Non-Af BUN/Creatinine Ratio Glucose Calcium Troponin I High Sens < 3 L Cancelled Radiography Chest X-Ray - ED: 1 View, Read by ED Physician and Right Infiltrate Diagnostic Testing: Clinical Impression(s) from Imaging Studies Chest X-Ray 01/27/22 18:35 IMPRESSION: Focal opacity at the right apex is better assessed on concurrent chest CT and represents a large solid mass. Electronically Signed: Bernabe Hanson MD at 19:46 EDT , Chest CTA 01/27/22 19:06 IMPRESSION: No pulmonary embolism or aortic dissection. Large right apical solid mass lesion and associated right hilar lymphadenopathy. Recommend further evaluation with tissue sampling and/or PET/CT. Left adrenal mass may indicate metastases. It is incompletely characterized. Electronically Signed: Bernabe Hanson MD at 20:30 EDT , EKG Initial EKG: Attestation: I personally reviewed and interpreted this EKG as follows: Interpretation: Sinus Rhythm (Sinus at 62 with no acute ischemia.) Treatment and Re-Evaluation Narrative: Lab work reviewed. Mild elevation in white count. Troponin less than 3. D-dimer elevated at 2.28. Chest x-ray per my interpretation appears to show a wedge shaped infiltrate in the right upper lobe. On CT this appears to be more consistent with a solid mass measuring 5.7 x 5.3 x 7.2 cm. There is also a left adrenal mass which may indicate metastasis. I spoke with Dr. Barragan, on-call for patient's PCP. He states they can try to arrange for follow-up with do not know how soon a biopsy would be able to be performed. I also spoke with Dr. Villarreal as the patient is willing to stay in town and see someone outside the [facility] system. He states they will see the patient within a week and have biopsy performed within 2 weeks. I will give him pulmonary's number for follow-up as well. Discharge Plan Triage Chief Complaint: Chest Pain ED Provider: Britany Tanner Dx/Rx/DC Orders Clinical Impression: Lung mass Instructions: ED Chest Pain, Noncardiac Prescriptions: No Action cholecalciferol (vitamin D3) 1,250 mcg (50,000 unit) capsule 1,250 mcg PO QWEEK RF: 0 sildenafil [Viagra] 50 mg tablet 50 mg PO DAILY PRNRF: 0 multivitamin 1 EACH tablet 1 ea PO DAILY RF: 0 atorvastatin 20 MG tablet 20 mg PO QHS RF: 0 aspirin 81 MG tablet,delayed release (DR/EC) 81 mg PO DAILY RF: 0 folic acid 1 MG tablet 1 mg PO BID RF: 0 coenzyme Q10 100 MG capsule 200 mg PO QHS RF: 0 cyanocobalamin (vitamin B-12) 1,000 mcg/mL solution 1,000 mcg IM Q4W PRNRF: 0 ondansetron [ondansetron] 4 MG tablet 4 mg PO Q8H PRN PRN (Reason: Nausea) Qty: 10 RF: 0 meclizine 25 mg tablet 25 mg PO TID PRN (Reason: dizziness) Qty: 14 RF: 0 metoprolol tartrate 25 mg tablet 12.5 mg PO BID Qty: 30 RF: 6 Primary Care Provider: Loco Sims Referrals: Jagdish Villarreal MD [STAFF PHYSICIAN] - As soon as possible Loco Sims MD [Primary Care Provider] - Activity Restrictions/Additional Instructions: As discussed, your x-ray and CT scan revealed a mass in your right lung. This will need follow-up with a biopsy. Your primary care physician will start working on this through [facility]. You can also call Dr. Villarreal's office for follow-up here in [facility]. Disposition Disposition: Home, Self Care Discharge Date/Time: 01/27/22 21:08
[2022-01-27 20:41] LABS: Reflex Troponin-HS? (from REC) Y
[2022-01-27 21:07] VITALS: BP 136/76; PULSE 78; RESP 16; TEMP 36.9; O2SAT 98
== END 2022-01-27 21:08 | disposition home or self-care (01) ==
PROVIDERS: Emergency Provider Emergency Medicine; PCP Family Medicine; Visit Provider Emergency Medicine
DX: R91.8 Other nonspecific abnormal finding of lung field (principal); I50.32 Chronic diastolic (congestive) heart failure; I25.10 Atherosclerotic heart disease of native coronary artery without angina pectoris; Z87.891 Personal history of nicotine dependence; E78.5 Hyperlipidemia, unspecified; K21.9 Gastro-esophageal reflux disease without esophagitis
CPT/HCPCS: 71045; 71275; 80048; 84484; 85025; 85379; 93005; 99284; Q9967

== ENCOUNTER 2022-02-20 15:35 | Inpatient (IN) | payer MEDICARE, OTHER, SELFPAY ==
[2022-02-20] VITALS (9 sets, daily range): BP systolic 109–149; BP diastolic 65–83; PULSE 70–88; RESP 17–26; TEMP 36.5–36.7; O2SAT 95–100; BMI 26.2; BMI 25.0
--- NOTE | 2022-02-20 16:00 | CT_ITS ---
STAT! STAT! QUESTIONABLE STROKE ALERT! STUDY: CT BRAIN WITHOUT CONTRAST ENHANCEMENT OF 1651 HOURS ON 02/20/2022 REASON FOR EXAM: 86-year-old male with altered mental status. RADIATION DOSAGE (If Supplied By Facility): CTDIvol = ( 44.99 ) mGy, DLP = ( 846.73 ) mGycm TECHNIQUE: Transaxial CT imaging of the brain was performed without administration of intravenous contrast material. Individualized dose optimization techniques were used for this CT. COMPARISON: No relevant priors. FINDINGS: Questionable 1.3 cm diameter area of low attenuation in the left basal ganglia in the left basal ganglia, which could represent a mild ischemic infarct without hemorrhagic component. There is no evidence of ischemic or hemorrhagic cerebral infarct. There is no evidence intracranial neoplasms. There is no evidence of a subdural, epidural, intracerebral hematoma, hemorrhage, or contusion. There is mild cortical, central, and cerebellar atrophy. Posterior fossa, sella, pituitary are normal. Normal calvarium without linear or depressed skull fractures. Normal paranasal sinuses. CT/Brain/Head without Contrast IMPRESSION: 1. Questionable 1.3 cm in diameter area of low attenuation--which could represent an mild ischemic infarct without hemorrhagic component. 2. No evidence of other ischemic or hemorrhagic cerebral infarction or intracranial neoplasms. 3. No subdural, epidural, or intracerebral hematoma, hemorrhage or contusion. 4. Mild central, cortical, and cerebellar atrophy. 5. Normal calvarium and paranasal sinuses. Electronically Signed: Boris Mckee MD at 17:44 EDT ,
--- NOTE | 2022-02-20 16:00 | CT_ITS ---
STUDY: PULMONARY AND CHEST CT ANGIOGRAPHY OF 1652 HOURS ON 02/20/2022 REASON FOR EXAM: 86-year-old male with syncope. RADIATION DOSAGE (If Supplied By Facility): CTDIvol = ( 17.77 ) mGy, DLP = ( 466.33 ) mGycm TECHNIQUE: The examination was performed with the intravenous administration of IV 100mL Isovue-370. Post-processing of the angiographic images was performed, with multiplanar reformation and 3D reconstruction. Individualized dose optimization techniques were used for this CT. COMPARISON: None. FINDINGS: Mild cardiomegaly. Minimal mediastinal and right hilar lymphadenopathy. There is a 5.5 cm in diameter Pancoast tumor in the apical segment of the right upper lobe with erosion of the adjacent first rib. There are minimal atelectatic changes in both lower lobes. There is a small non-obstructing thrombus in a third order branch of the right lower lobe pulmonary artery. Is also a small nonobstructing thrombus and a second order branch of the left lower lobe pulmonary artery. There are no other findings of phlebothrombosis in the pulmonary arteries. There is a mildly calcified tortuous thoracic aorta without dissection or aneurysm. CT/CTA Chest W/WO Contrast IMPRESSION: 1. Presence of a 5.5 cm diameter Pancoast tumor in the apical segment of the right upper lobe with erosion of the adjacent first rib. 2. Minimal pulmonary thromboembolism--small nonobstructing thrombi in a third order branch of the right lower lobe pulmonary artery and a second order branch of the left lower lobe pulmonary artery. 3. No evidence of a thoracic aortic dissection or aneurysm. 4. Mild cardiomegaly. 5. Mild mediastinal and right hilar lymphadenopathy. 6. Minimal atelectatic changes in both lower lobes. Electronically Signed: Boris Mckee MD at 18:13 EDT ,
--- NOTE | 2022-02-20 16:01 | EKG12_ITS ---
Test Reason : SYNCOPE Blood Pressure : / mmHG Vent. Rate : 074 BPM Atrial Rate : 074 BPM P-R Int : 144 ms QRS Dur : 104 ms QT Int : 392 ms P-R-T Axes : 070 013 010 degrees QTc Int : 435 ms Normal sinus rhythm Normal ECG Confirmed by ISAAC BORREGO, MERON ([id number]), deputy editor in chief CLARENCE BAZAN ([id number]) on 02/22/2022 1:31:47 PM Referred By: JIE Confirmed By:MERON GRAY MD
[2022-02-20 16:14] LABS: Absolute Lymphocyte Count 1.02 X10^3/uL (0.83-4.51); Absolute Neutrophil Count 10.4 X10^3/uL (2.0-7.7); Basophil# 0.03 X10^3/uL; Basophil% 0.2 % (0-1); Eosinophil# 0.09 X10^3/uL; Eosinophils% 0.7 % (0-5); Hematocrit 27.4 % (40-54); Hemoglobin 8.6 g/dL (13.0-16.5); Lymphocyte # 1.02 X10^3/ul (0.83-4.51); Lymphocyte % 8.3 % (19-41); Mean Corp Hgb Conc 31.4 g/dL (32-36); Mean Corpuscular Hgb 23.9 pg (27.0-32.0); Mean Corpuscular Volume 76.1 fL (80-94); Mean Platelet Vol. 10.3 fl (6.2-12.0); Monocyte% 4.9 % (0-10); NRBC Flagged by Analyzer 0 % (0-5); Neutrophil # 10.41 X10^3/uL (2.7-7.7); Neutrophil % 85.3 % (47-70); Platelet Count 304 K/mm3 (150-450); RBC Distribution Width CV 15.9 % (11.6-14.6); RBC Distribution Width SD 43.9 fl (35.1-43.9); White Blood Count 12.2 K/mm3 (4.4-11.0)
--- NOTE | 2022-02-20 16:18 | EX.ED.DYSGE1 ---
HPI History of Present Illness Chief Complaint: Syncope Narrative Narrative: 86-year-old male presenting after an episode of syncope. Patient was in the car with his when he states he started to feel little bit lightheaded in the car. Patient's states she stopped for gas and stated she would get the gas due to his lightheadedness and he tried to get up and then felt like things were going dark and then had an episode of syncope. He did not hit his head. He felt like he was awake throughout the whole thing however he did feel confused. His said he did look confused. Of note patient has recent diagnosis of right chest mass. He states that he has had MRIs, PET scans and so far everything has gone well. He does describe some chest pain in the right side of his chest prior to the episode which is adjacent to where his masses. Patient states he also has anemia and has been getting iron infusions. He denies black or bloody stools. He is not anticoagulated. He denies shortness of breath. He states currently he feels well lying in the bed. No GI or complaints. [facility] Medical History Anemia Atherosclerotic heart disease of three affiliated coronary artery without angina pectoris BPH (benign prostatic hyperplasia) Bradycardia Chronic diastolic (congestive) heart failure Diverticulosis GERD (gastroesophageal reflux disease) Hyperlipidemia Kidney stones Mitral annular calcification Pulmonary nodule Right bundle branch block (RBBB) Home Medications aspirin 81 mg PO DAILY 04/18/19 [History Last Taken Unknown] atorvastatin 20 mg PO QHS 04/18/19 [History Last Taken Unknown] coenzyme Q10 200 mg PO QHS 04/18/19 [History Last Taken Unknown] folic acid 1 mg PO BID 04/18/19 [History Last Taken Unknown] multivitamin 1 ea PO DAILY 04/18/19 [History Last Taken Unknown] cholecalciferol (vitamin D3) 1,250 mcg (50,000 unit) capsule 1,250 mcg PO QWEEK 05/28/20 [History Last Taken Unknown] sildenafil 50 mg tablet 50 mg PO DAILY PRN 05/28/20 [History Last Taken Unknown] metoprolol tartrate 25 mg tablet 12.5 mg PO BID #30 tab 10/28/20 [Rx Last Taken Unknown] cyanocobalamin (vitamin B-12) 1,000 mcg/mL injection solution 1,000 mcg IM Q4W PRN ml 06/04/21 [History Last Taken Unknown] meclizine 25 mg PO TID PRN #14 tab 10/16/21 [Rx Last Taken Unknown] ondansetron 4 mg PO Q8H PRN PRN #10 tab 10/16/21 [Rx Last Taken Unknown] Allergy/AdvReac Type Severity Reaction Status Date / Time No Known Allergies Allergy Verified 01/27/22 18:01 Family History (Updated 02/20/22 @ 20:[address] Anabel Nur MD) Mother Heart disease Brother Cancer Brother Cancer Father Gastric ulcer GI bleed Surgical History History of coronary artery stent placement (07/19/02) History of herniorrhaphy History of left heart catheterization (07/18/02) History of shoulder surgery Social History (Updated 02/20/22 @ 20:[address] Anabel Nur MD) household members: spouse Smoking Status: Former smoker how long ago did patient quit smoking: Quit 1999, pipe smoked since 30 y/o until quit. alcohol intake: current alcohol intake frequency: holidays/special occasions only substance use type: does not use ROS ROS ED Constitutional Constitutional ED: Denies chills or fever(s) Eyes Eyes: Denies blurry vision or diplopia ENT ENT ED: Denies rhinorrhea or sore throat Cardiovascular Cardiovascular: Reports chest pain and other Details: Syncopal episode ; Denies palpitations Respiratory/Chest Respiratory/Chest: Denies cough or dyspnea Gastrointestinal Gastrointestinal: Denies abdominal pain, nausea or vomiting Genitourinary Genitourinary ED: Denies dysuria or hematuria Musculoskeletal Musculoskeletal: Denies myalgias Integumentary Denies rash Neurologic Neurologic: Denies headache(s) Psychiatric Psychiatric: Denies anxiety or depression EXAM Physical Exam Const Vital Signs: 02/20/22 15:42 02/20/22 15:51 02/20/22 16:10 Temperature 97.7 F L Temperature Source Temporal Pulse Rate 70 Respiratory Rate 17 Respiratory Effort Normal Non-Labored Respiratory Pattern Normal Blood Pressure 109/65 Blood Pressure Mean 79 Pulse Ox 100 Oxygen Delivery Method Room Air Room Air 02/20/22 17:01 02/20/22 18:09 Temperature Temperature Source Pulse Rate 84 72 Respiratory Rate 19 H 26 H Respiratory Effort Respiratory Pattern Blood Pressure 137/66 H 134/71 H Blood Pressure Mean 89 92 Pulse Ox 100 95 Oxygen Delivery Method Room Air Room Air Positive well nourished General Appearance ED: NAD; Negative for pallor HEENT Reports moist mucous membranes Negative for trauma Eyes PERRL and EOMs intact bilaterally General Eye ED: Negative for pale conjunctiva or scleral icterus Neck no lymphadenopathy and supple Resp normal respiratory effort and clear to auscultation bilaterally Cardio regular rate and regular rhythm GI normal to inspection, nondistended, normoactive bowel sounds Extremity normal to inspection General Extremety ED: Negative for tenderness Neuro oriented x3, CN's II-XII intact bilaterally and no sensory deficits noted Sensorium / Orientation: alert Motor Exam: strength 5/5 throughout Psych mental status grossly normal Skin no rashes or lesions noted General Skin Exam: Negative for jaundice or pallor MDM MDM MDM Narrative Medical decision making narrative: 86-year-old male presenting with an episode of syncope. Total time with confusion and syncopal episode seem to last about 4 minutes per the . Patient alert and awake and talking in the emergency room. He has history of syncope. He also has a recent diagnosis of lung mass in the right lung. No history of DVT/PE. He did report some chest pain in the area of the newly diagnosed tumor. It did not radiate. He not describe chest pressure. I obtained an EKG on arrival and on my interpretation this is a normal sinus rhythm with a ventricular rate of 74 bpm without sign of ischemic change or dysrhythmia. CBC shows a slight leukocytosis of 12.2. Hemoglobin slightly lower at 8.6 when compared to previous lab work 01/27/2022. At that point it was 10. Patient does report that he has iron deficiency anemia and does receive iron infusions. Patient is Hemoccult negative. Renal function appears normal. BUN not significantly elevated. Electrolytes within normal limits. High-sensitivity troponin is 6. Chest x-ray my interpretation shows right upper lobe mass involving the second rib. The radiologist does read this is more progressive. 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 The patient is not tender here however. CT of the brain is performed and shows a small area approximately 1.3 cm in the left basal ganglia which could possibly be an infarct. Patient had a normal MRI brain on the fourth. It is interpreted in the results that the radiologist left a message for me regarding this urgent finding however I never received a phone call from the radiologist noted I received a message. After seeing this finding on the CT the patient was reexamined. He has no focal neurologic deficits. He has been alert and awake and moving all 4 extremities that has been here. I am not sure that his syncopal event has anything to do with this abnormal finding. I did look in the medical record and saw that his MRI was read as normal. This MRI was done with and without IV contrast. I suspect the patient will need to stay to have a repeat MRI to rule out acute infarct although this is less likely. Patient CTA has read as presence of a 5.5 cm Pancoast tumor in the apical 7 of the right upper lobe with erosion of the first rib. There is thromboembolism present and small nonobstructing thrombi in a third order branch of the right lower lobe and a second order branch of the left lower lobe pulmonary artery. Cardiomegaly is present. No dissection or aneurysm noted. After speaking with the hospitalist for admission she recommended a heparin drip for the blood clots. This will be ordered. Patient will have MRI done in the hospital as well. Repeat exam the patient is doing well. His blood pressure is improved 134/71. Discussed all findings with the patient and his . They feel comfortable being admitted to [facility] for further care. Impression: 1. Abnormal head CT 2. Pulmonary emboli 3. Syncope 4. Anemia 5. Pancoast tumor 6. Cardiomegaly Lab Data Labs: Laboratory Results - last 24 hr 02/20/22 02/20/22 02/20/22 15:43 15:43 16:07 WBC 12.2 H RBC 3.60 L Hgb 8.6 L Hct 27.4 L MCV 76.1 L MCH 23.9 L MCHC 31.4 L RDW Std Deviation 43.9 RDW Coeff of Radu 15.9 H Plt Count 304 MPV 10.3 Immature Gran % (Auto) 0.600 Neut % (Auto) 85.3 H Lymph % (Auto) 8.3 L [place] % (Auto) 4.9 Eos % (Auto) 0.7 Baso % (Auto) 0.2 Absolute Neuts (auto) 10.4 H Absolute Lymphs (auto) 1.02 Nucleated RBC % 0 Sodium 136 Potassium 4.0 Chloride 105 Carbon Dioxide 25.0 Anion Gap 6 BUN 15 Creatinine 0.94 Estim Creat Clear Calc 58.50 Est GFR (MDRD) Af Amer 98 Est GFR (MDRD) Non-Af 81 BUN/Creatinine Ratio 15.9 Glucose 123 H Calcium 9.8 Troponin I High Sens 7 Blood Type O POSITIVE Antibody Screen NEGATIVE 02/20/22 18:30 WBC RBC Hgb Hct MCV MCH MCHC RDW Std Deviation RDW Coeff of Radu Plt Count MPV Immature Gran % (Auto) Neut % (Auto) Lymph % (Auto) [place] % (Auto) Eos % (Auto) Baso % (Auto) Absolute Neuts (auto) Absolute Lymphs (auto) Nucleated RBC % Sodium Potassium Chloride Carbon Dioxide Anion Gap BUN Creatinine Estim Creat Clear Calc Est GFR (MDRD) Af Amer Est GFR (MDRD) Non-Af BUN/Creatinine Ratio Glucose Calcium Troponin I High Sens 6 Blood Type Antibody Screen Radiography Diagnostic Testing: Clinical Impression(s) from Imaging Studies Brain CT 02/20/22 16:00 IMPRESSION: 1. Questionable 1.3 cm in diameter area of low attenuation--which could represent an mild ischemic infarct without hemorrhagic component. 2. No evidence of other ischemic or hemorrhagic cerebral infarction or intracranial neoplasms. 3. No subdural, epidural, or intracerebral hematoma, hemorrhage or contusion. 4. Mild central, cortical, and cerebellar atrophy. 5. Normal calvarium and paranasal sinuses. Electronically Signed: Boris Mckee MD at 17:44 EDT , ADDENDUM: 02/20/22 [id number] IMPRESSION: undefined Chest CTA 02/20/22 16:00 IMPRESSION: 1. Presence of a 5.5 cm diameter Pancoast tumor in the apical segment of the right upper lobe with erosion of the adjacent first rib. 2. Minimal pulmonary thromboembolism--small nonobstructing thrombi in a third order branch of the right lower lobe pulmonary artery and a second order branch of the left lower lobe pulmonary artery. 3. No evidence of a thoracic aortic dissection or aneurysm. 4. Mild cardiomegaly. 5. Mild mediastinal and right hilar lymphadenopathy. 6. Minimal atelectatic changes in both lower lobes. Electronically Signed: Boris Mckee MD at 18:13 EDT , Chest X-Ray 02/20/22 16:50 IMPRESSION: 1. Findings of a Pancoast tumor in the apical segment of the right upper lobe with erosion of the adjacent second rib--increased in size since the previous study of 01/27/2022. 2. Minimal bilateral lower lobe atelectatic changes. 3. No other evidence of active cardiopulmonary disease. 4. 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 5. Mild demineralization. Electronically Signed: Boris Mckee MD at 17:53 EDT , Discharge Plan Triage Chief Complaint: Syncope ED Provider: Og Lassiter Dx/Rx/DC Orders Primary Care Provider: Loco Sims
[2022-02-20] MEDS: 0.9% Normal Saline 1,000 ML 999 ML IV (16:26)
[2022-02-20 16:31] LABS: Anion Gap 6 (5-15); BUN 15 mg/dL (7-18); BUN/Creat Ratio 15.9 RATIO (10-20); Calcium,Total 9.8 mg/dL (8.5-10.1); Chloride 105 mmol/L (98-107); Creatinine, Serum 0.94 mg/dL (0.70-1.30); EST Glomerular Filtration Rate 81 mL/min (>60); Est Glom Filt Rate - Afr Amer 98 mL/min (>60); Glucose 123 mg/dL (74-106); Sodium Level 136 mmol/L (136-145); Troponin-I HS (w/2H Reflex) 7 pg/mL (3.0-78.0)
--- NOTE | 2022-02-20 16:50 | RAD_ITS ---
STUDY: AP PORTABLE UPRIGHT CHEST X-RAY OF 1646 HOURS ON 02/20/2022 REASON FOR EXAM: 86-year-old male with chest pain. TECHNIQUE: A single view AP portable upright chest x-ray was performed per protocol. COMPARISON: 01/27/2022, which demonstrated a mass or infiltrate in the right upper lobe.. FINDINGS: There is a suggestion of a Pancoast tumor in the apical segment right upper lobe with erosion of the adjacent second rib. This has increased in size since previous study of 01/27/2022. There are mild atelectatic changes in the left lower lobe and minimal atelectatic changes in the right lower lobe. No evidence of confluent infiltrates or effusion.. There is no cardiomegaly. There are findings of mild emphysema. Air-filled splenic flexure of the colon is noted beneath the left hemidiaphragm, which could result in a splenic flexure syndrome. Mild demineralization is noted. RAD/Chest 1 View (Portable) IMPRESSION: 1. Findings of a Pancoast tumor in the apical segment of the right upper lobe with erosion of the adjacent second rib--increased in size since the previous study of 01/27/2022. 2. Minimal bilateral lower lobe atelectatic changes. 3. No other evidence of active cardiopulmonary disease. 4. 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 5. Mild demineralization. Electronically Signed: Borsi Mckee MD at 17:53 EDT ,
--- NOTE | 2022-02-20 17:51 | NURSING ---
Dr. Lassiter made aware of brain CT results. was not called with results by radiology.
[2022-02-20 18:11] LABS: Reflex Troponin-HS? (from REC) Y
[2022-02-20 18:57] LABS: Troponin-I HS 6 pg/mL (3.0-78.0)
--- NOTE | 2022-02-20 19:26 | HP.PCM.HOS_ITS ---
HPI - General General Date of Admission: 02/20/22 Date of Service: 02/20/22 Chief Complaint: Syncopal event HPI Narrative The patient is an 86 y/o M w/ PMHx: HTN, HLD, Chronic diastolic CHF, CAD s/p PCI, Chronic microcytic anemia/Fe deficiency anemia currently receiving iron transfusions, BPH, Hx bradycardia, GERD, Known RBBB, Former tobacco use, Recent diagnosis chest mass w/ ongoing evaluation who presents to the [facility] ED on 02/20/22 with reportedly stopping for gas with his at which point patient felt lightheaded and try to get up with tunnel vision and syncopal event with no trauma to the head with associated confusion with associated chest discomfort to the right side of his chest at the site of where the mass is present prompting ED evaluation. EMS while attempting to get him up noted again near syncopal sensation recurrence. He notes similar episodes although they were near syncopal occurring as far back as 15 years ago and most recently prior to these episodes 2 weeks ago. Work-up in the ED included T97.7, heart rate 70, BP 109/65, respiratory rate 17, 100% on room air, CBC with WC 12.2, hemoglobin 8.6, platelet 304 with left shift, BMP unremarkable aside glucose 123, type and screen performed, troponin initial 7 with repeat 6, guaiac negative, CT brain with questionable 1.3 cm diameter area of low-attenuation possibly mild ischemic infarct without any hemorrhagic component, CTPA with presence of a 5.5 cm d iameter Pancoast tumor in the apical segment of the right upper lobe with erosion of the adjacent first rib, minimal pulmonary thromboembolism embolism with a small nonobstructing thrombi and a third order branch of the right lower lobe pulmonary artery and a second order branch of the left lower lobe pulmonary artery with mild mediastinal and right hilar lymphadenopathy, EKG SR without acute evidence of ischemia. Of note MRI brain with contrast performed at the on 02/17/22 noted to be normal at that time with also recent endoscopies with no acute bleed with Bx taken reportedly unremarkable. In the ED patient ministered normal saline and started on heparin drip. [facility] Medical History Anemia Atherosclerotic heart disease of [place] coronary artery without angina pectoris BPH (benign prostatic hyperplasia) Bradycardia Chronic diastolic (congestive) heart failure Diverticulosis GERD (gastroesophageal reflux disease) Hyperlipidemia Kidney stones Mitral annular calcification Pulmonary nodule Right bundle branch block (RBBB) Home Medications aspirin 81 mg PO DAILY 04/18/19 [History Last Taken Unknown] atorvastatin 20 mg PO QHS 04/18/19 [History Last Taken Unknown] coenzyme Q10 200 mg PO QHS 04/18/19 [History Last Taken Unknown] folic acid 1 mg PO BID 04/18/19 [History Last Taken Unknown] multivitamin 1 ea PO DAILY 04/18/19 [History Last Taken Unknown] cholecalciferol (vitamin D3) 1,250 mcg (50,000 unit) capsule 1,250 mcg PO QWEEK 05/28/20 [History Last Taken Unknown] sildenafil 50 mg tablet 50 mg PO DAILY PRN 05/28/20 [History Last Taken Unknown] metoprolol tartrate 25 mg tablet 12.5 mg PO BID #30 tab 10/28/20 [Rx Last Taken Unknown] meclizine 25 mg PO TID PRN #14 tab 10/16/21 [Rx Last Taken Unknown] ondansetron 4 mg PO Q8H PRN PRN #10 tab 10/16/21 [Rx Last Taken Unknown] Allergy/AdvReac Type Severity Reaction Status Date / Time No Known Allergies Allergy Verified 01/27/22 18:01 Family History Mother Heart disease Brother Cancer Brother Cancer Father Gastric ulcer GI bleed Surgical History History of coronary artery stent placement (07/19/02) History of herniorrhaphy History of left heart catheterization (07/18/02) History of shoulder surgery Social History household members: spouse Smoking Status: Former smoker how long ago did patient quit smoking: Quit 1999, pipe smoked since 30 y/o until quit. alcohol intake: current alcohol intake frequency: holidays/special occasions only substance use type: does not use ROS ROS Narrative Admission Review of Systems: CONSTITUTIONAL: No weight loss, fever, chills, + weakness or fatigue. HEENT: + Tunnel vision onset with syncopal event. Eyes: No visual loss, blurred vision, double vision or yellow sclerae. Ears, Nose, Throat: No hearing loss, sneezing, congestion, runny nose or sore throat. SKIN: No rash or itching, lesions, wounds. CARDIOVASCULAR: + Syncopal event, chest pain, No edema, orthopnea. RESPIRATORY: + Shortness of breath, No marked cough or sputum, wheezing, hemoptysis. GASTROINTESTINAL: No anorexia, nausea, vomiting or diarrhea, abdominal pain, melena, BRBPR. GENITOURINARY: No dysuria, frequency, urgency or retention. NEUROLOGICAL: + Syncopal event, No headache, paralysis, ataxia, numbness or tingling in the extremities, focal weakness, change in bowel or bladder control, seizure. MUSCULOSKELETAL: + muscle, back pain, joint pain or stiffness. HEMATOLOGIC: + anemia, bleeding or bruising. LYMPHATICS: No enlarged nodes. No history of splenectomy. PSYCHIATRIC: No history of depression or anxiety. ENDOCRINOLOGIC: No reports of sweating, cold or heat intolerance. No polyuria or polydipsia. ALLERGIES: No history of asthma, hives, eczema or rhinitis. Vital Signs Vital Signs Vital Signs: 02/20/22 15:42 02/20/22 15:51 02/20/22 16:10 Temperature 97.7 F L Temperature Source Temporal Pulse Rate 70 Respiratory Rate 17 Respiratory Effort Normal Non-Labored Respiratory Pattern Normal Blood Pressure 109/65 Blood Pressure Mean 79 Pulse Ox 100 Oxygen Delivery Method Room Air Room Air 02/20/22 17:01 02/20/22 18:09 Temperature Temperature Source Pulse Rate 84 72 Respiratory Rate 19 H 26 H Respiratory Effort Respiratory Pattern Blood Pressure 137/66 H 134/71 H Blood Pressure Mean 89 92 Pulse Ox 100 95 Oxygen Delivery Method Room Air Room Air Weight Weight: 177 lb 11.081 oz Body Mass Index (BMI) 26.2 Physical Exam Narrative Physical Examination: General: Awake, alert, oriented x 3 and cooperative, seated upright in the ED bed, fatigued appearing. Skin: Normal color, normal turgor, no icterus, no cyanosis. HEENT: AT/NC, EOMI, PERRLA, mildly dry MM, no carotid bruits or JVD noted. Lungs: Diminished, greater bases, right greater than left including to mid, moderate effort with no distress, no marked rales, ronchi or wheezing. Heart: Currently regular rate and rhythm; no gallop, rub audible, + SM. Abdomen: Soft, NTTP, ND, normal BS, no HSM. Extremities: No cyanosis, clubbing, or edema. Neurological: Patient awake, alert, oriented as noted, cognitive function appears resolved, now baseline intact; pupils equally reactive to light and accommodation, cranial nerves II-XII grossly normal, moving all 4 extremities, no focal deficits, strength mildly to moderately global decrease given recent events but improving. Psychiatric: Affect appears fatigued otherwise normal, no acute evidence of depressive or anxiety feelings. Results Lab / Micro Data Result Diagrams: 02/20/22 15:43 02/20/22 15:43 Labs: Laboratory Results - last 24 hr 02/20/22 15:43: WBC 12.2 H, RBC 3.60 L, Hgb 8.6 L, Hct 27.4 L, MCV 76.1 L, MCH 23.9 L, MCHC 31.4 L, RDW Std Deviation 43.9, RDW Coeff of Radu 15.9 H, Plt Count 304, MPV 10.3, Immature Gran % (Auto) 0.600, Neut % (Auto) 85.3 H, Lymph % (Auto) 8.3 L, [place] % (Auto) 4.9, Eos % (Auto) 0.7, Baso % (Auto) 0.2, Absolute Neuts (auto) 10.4 H, Absolute Lymphs (auto) 1.02, Nucleated RBC % 0 02/20/22 15:43: Sodium 136, Potassium 4.0, Chloride 105, Carbon Dioxide 25.0, Anion Gap 6, BUN 15, Creatinine 0.94, Estim Creat Clear Calc 58.50, Est GFR (MDRD) Af Amer 98, Est GFR (MDRD) Non-Af 81, BUN/Creatinine Ratio 15.9, Glucose 123 H, Calcium 9.8, Troponin I High Sens 7 02/20/22 16:07: Blood Type O POSITIVE, Antibody Screen NEGATIVE 02/20/22 18:30: Troponin I High Sens 6 Micro: Microbiology 02/20/22 18:15 Stool Stool Occult Blood (ABHISHEK) - Final Radiology Impression Brain CT 02/20/22 16:00 IMPRESSION: 1. Questionable 1.3 cm in diameter area of low attenuation--which could represent an mild ischemic infarct without hemorrhagic component. 2. No evidence of other ischemic or hemorrhagic cerebral infarction or intracranial neoplasms. 3. No subdural, epidural, or intracerebral hematoma, hemorrhage or contusion. 4. Mild central, cortical, and cerebellar atrophy. 5. Normal calvarium and paranasal sinuses. Electronically Signed: Boris Mckee MD at 17:44 EDT , ADDENDUM: 02/20/22 1754 IMPRESSION: undefined Chest CTA 02/20/22 16:00 IMPRESSION: 1. Presence of a 5.5 cm diameter Pancoast tumor in the apical segment of the right upper lobe with erosion of the adjacent first rib. 2. Minimal pulmonary thromboembolism--small nonobstructing thrombi in a third order branch of the right lower lobe pulmonary artery and a second order branch of the left lower lobe pulmonary artery. 3. No evidence of a thoracic aortic dissection or aneurysm. 4. Mild cardiomegaly. 5. Mild mediastinal and right hilar lymphadenopathy. 6. Minimal atelectatic changes in both lower lobes. Electronically Signed: Boris Mckee MD at 18:13 EDT , Chest X-Ray 02/20/22 16:50 IMPRESSION: 1. Findings of a Pancoast tumor in the apical segment of the right upper lobe with erosion of the adjacent second rib--increased in size since the previous study of 01/27/2022. 2. Minimal bilateral lower lobe atelectatic changes. 3. No other evidence of active cardiopulmonary disease. 4. 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 5. Mild demineralization. Electronically Signed: Boris Mckee MD at 17:53 EDT , Assessment & Plan Assessment/Plan (1) Acute pulmonary embolism: QUALIFIERS: Pulmonary embolism type: unspecified Acute cor pulmonale presence: unspecified Qualified Code(s): I26.99 - Other pulmonary embolism without acute cor pulmonale (2) Syncope and collapse: PLAN: The patient is an 86 y/o M w/ PMHx: HTN, HLD, Chronic diastolic CHF, CAD s/p PCI, Chronic microcytic anemia/Fe deficiency anemia currently receiving iron transfusions, BPH, Hx bradycardia, GERD, Known RBBB, Former tobacco use, Recent diagnosis chest mass w/ ongoing evaluation who presents to the [facility] ED on 02/20/22 with reportedly stopping for gas with his at which point patient felt lightheaded and try to get up with tunnel vision and syncopal event with no trauma to the head with associated confusion with associated chest discomfort to the right side of his chest at the site of where the mass is present prompting ED evaluation with recurrent episode with EMS and also history of prior similar although less severe episodes most recent 2 weeks prior. #1. Syncopal event, Chest pain suspected secondary to Acute Pulmonary Embolism but given prior events, possibly additional etiology: Patient high risk for acute VTE given underlying CA history. Will admit to PCU, maintain on cardiac telemetry, obtain ECHO, obtain carotid US, obtain orthostatics, BNP, cycle cardiac enzymes to be cautious although pain likely tumor burden related and PE related, will continue therapeutic heparin drip regimen with pending AM insurance oral regimen investigation. #2. Incidental CT brain findings: Given recent MRI with/without contrast without acute findings, will maintain on neurochecks and may consider MRI of the brain repeat but given recently normal and that this has been a recurrent event again low suspicion. ECHO requested given #1. Maintain on fall precautions, aspiration precautions, neuro checks. #3. Recent Diagnosis Chest Mass, Pancoast Tumor: Patient with recent notable ongoing evaluation at for lung mass, CTPA with presence of a 5.5 cm diameter Pancoast tumor in the apical segment of the right upper lobe with erosion of the adjacent first rib, minimal pulmonary thromboembolism embolism with a small nonobstructing thrombi and a third order branch of the right lower lobe pulmonary artery and a second order branch of the left lower lobe pulmonary artery with mild mediastinal and right hilar lymphadenopathy. Encourage continued follow-up with Oncology/Pulmonary. #4. Chronic anemia/iron deficiency anemia: Admission hemoglobin 8.6, most r ecently 01/27/2210, MCV consistent with iron deficiency anemia, on IV Fe supplementation outpatient at , guaiac negative and recent endoscopies not significant from 02/17/22, continue to trend especially given planned heparin drip. #5. Chronic diastolic CHF: Compensated appearance, will continue aspirin, statin, metoprolol, not on CARMEN inhibitor or ARB nor any diuretic therapy. #6. CAD: Status post PCI, we will continue aspirin, statin, metoprolol regimen, not on CARMEN inhibitor or ARB #7. Hypertension: Continue home regimen including metoprolol with hold parameters as needed, PRN hydralazine. #8. Hyperlipidemia: We will continue patient on statin therapy. #9. Former tobacco use: Encourage continued tobacco cessation. #10 GERD: Continue home PPI #11. CODE status: Patient CIERRA is his who is present and living will is currently in place. Discussed CODE status at length including difference between FULL code, DNR-CCA and DNR-CC status. Following discussions about the differ ences in these status, requested Full Code status. Advanced Care Planning Face to Face Time: 16 minutes. Charges/Coding Visit Charges Inpatient E&M: 06497 Init Hosp L3 Procedures Hospitalists Procedures: 20348 Advncd Care Plan 30 Min
--- NOTE | 2022-02-20 20:15 | ECHOD_ITS ---
Reason For Study: PE Procedure This was a 2D Doppler, Color Flow transthoracic echocardiogram. Exam performed portable in patient room. Left Ventricle Normal LV size. Left ventricular systolic function is normal. The estimated ejection fraction is 70 %. No regional wall motion abnormalities noted. Right Ventricle Normal RV size. Normal systolic function. Atria Normal left atrium. The right atrium is mildly enlarged. Mitral Valve There is moderate mitral annular calcification. Tricuspid Valve Normal tricuspid valve. Moderate (2+) tricuspid valve insufficiency. Pulmonary artery systolic pressure is 59 mmHg. Moderate pulmonary hypertension. Aortic Valve Trisinus/trileaflet aortic valve. Moderate focal aortic valve calcification. Pulmonic Valve Normal pulmonic valve. Great Vessels Normal aortic root. The pulmonary artery is normal size. Normal inferior vena cava. Pericardium/Pleural No pericardial effusion. MMode/2D Measurements & Calculations LVIDd: 4.6 cm IVSd: 1.1 cm Ao root diam: 3.8 cm LVIDs: 2.3 cm LVPWd: 1.3 cm RVDd: 4.7 cm FS: 51.0 % LAV(MOD-bp): 81.2 ml LVAd ap4: 27.9 cm2 SV(MOD-sp4): 60.1 ml LAV(MOD-bp) Indexed: 41.4 ml/m2 LVLd ap4: 8.0 cm LAV(MOD-sp2): 100.9 ml EDV(MOD-sp4): 83.7 ml LAV(MOD-sp4): 56.7 ml EDV(sp4-el): 82.0 ml LVAs ap4: 12.7 cm2 LVLs ap4: 6.4 cm ESV(MOD-sp4): 23.5 ml ESV(sp4-el): 21.6 ml EF(MOD-sp4): 71.9 % EF(sp4-el): 73.6 % SV(sp4-el): 60.4 ml LA A4 area: 20.7 cm2 LA dimension(2D): 4.3 cm RA A4 area: 23.8 cm2 Doppler Measurements & Calculations MV E max enrique: 95.4 cm/sec Lat Peak E' Enrique: 9.6 cm/sec Med Peak E' Enrique: 8.3 cm/sec MV A max enrique: 113.2 cm/sec E/E' lat: 10.0 E/E' med: 11.6 MV E/A: 0.84 Ao V2 max: 190.5 cm/sec LV V1 max: 152.2 cm/sec PA V2 max: 152.1 cm/sec Ao max P.5 mmHg LV V1 max P.3 mmHg Ao V2 mean: 122.9 cm/sec Ao mean P.9 mmHg Ao V2 VTI: 33.3 cm TR max enrique: 368.2 cm/sec TR max P.2 mmHg ECHO/Echo Complete Interpretation Summary Normal LV size. Left ventricular systolic function is normal. The estimated ejection fraction is 70 %. The right atrium is mildly enlarged. Moderate pulmonary hypertension. Pulmonary artery systolic pressure is 59 mmHg. Moderate focal aortic valve calcification. Compared to the previous the pulmonary pressure is more elevated. Ordering Physician: Anabel Nur Referring Physician: Loco Sims Performed By: Sera Prater, BRENDAN, RVT
--- NOTE | 2022-02-20 20:15 | CDU_ITS ---
Reason For Study: syncope Rt. Velocities/BP Lt. Velocities/BP Prox CCA 116.5/21.3 cm/sec. Prox CCA 109.9/20.0 cm/sec. Mid CCA 100.8/13.4 cm/sec. Mid CCA 91.7/14.7 cm/sec. Dist CCA 93.0/18.6 cm/sec. Dist CCA 106.0/20.0 cm/sec. Prox ICA 69.5/13.4 cm/sec. Prox ICA 106.5/11.5 cm/sec. Mid ICA 96.9/25.2 cm/sec. Mid ICA 94.9/26.2 cm/sec. Dist ICA 78.6/20.0 cm/sec. Dist ICA 110.9/24.9 cm/sec. Rt. ICA/CCA = 1.0. Lt. ICA/CCA = 1.2. Prox ECA 102.1/8.23 cm/sec. Prox ECA 95.6/10.8 cm/sec. Rt. Vert. 59.1/13.4 cm/sec. Lt. Vert. 67.9/20.0 cm/sec. Right Extracranial There is homogeneous, smooth atherosclerotic plaque noted in the right common carotid artery. There is heterogeneous, irregular atherosclerotic plaque noted in the right internal carotid artery. The right internal carotid artery is very tortuous. There is intimal thickening but no significant atherosclerotic plaque noted in the right external carotid artery. Antegrade flow is noted in the right vertebral artery. Left Extracranial There is homogeneous, smooth atherosclerotic plaque noted in the left common carotid artery. There is heterogeneous, irregular atherosclerotic plaque noted in the left internal carotid artery. There is intimal thickening but no significant atherosclerotic plaque noted in the left external carotid artery. Antegrade flow is noted in the left vertebral artery. Procedure Carotid Duplex [id number]. This is a Carotid Duplex examination using B-mode, color flow and specral Doppler. The exam was diagnostic. Exam performed portable in patient room. VL/Carotid Duplex Ultrasound Interpretation Summary Calcific plaque with shadowing at the proximal right internal carotid artery wi th significant tortuosity of the right internal carotid. Less than 50% stenosis right internal carotid artery. Less than 50% stenosis right external carotid artery. Minimal calcific plaque at the proximal left internal carotid artery with less than 50% stenosis Less than 50% stenosis left external carotid artery Patent and antegrade vertebral arteries bilaterally Ordering Physician: Anabel Nur Performed By: Darius Shirley RVT
[2022-02-20 21:03] LABS: Magnesium 1.8 mg/dL (1.6-2.6)
[2022-02-20 21:10] LABS: BNP,B-Type NATRIURETIC PEPTIDE 140.1 pg/mL (0-100); International Normalized Ratio 1.2; Prothrombin Time (Protime)PT. 14.6 SECONDS (11.7-14.9)
[2022-02-20 21:11] LABS: Partial Thromboplast Time 28.9 Seconds (24.1-36.2)
[2022-02-20] MEDS: 0.9% Normal Saline 1,000 ML 100 ML IV (21:15)
[2022-02-20] MEDS: Metoprolol Tartrate 25 MG Tablet 12.5 MG PO (21:22)
[2022-02-20] MEDS: Atorvastatin Calcium 20 MG Tablet PO (21:22)
[2022-02-20] MEDS: Pantoprazole Sodium 20 MG Tablet PO (21:22)
[2022-02-20 23:07] LABS: Troponin-I HS 6 pg/mL (3.0-78.0)
[2022-02-21] VITALS (13 sets, daily range): BP systolic 124–136; BP diastolic 62–86; PULSE 64–86; RESP 18–21; TEMP 36.5–37.1; O2SAT 95–100
[2022-02-21 02:45] LABS: Absolute Lymphocyte Count 0.98 X10^3/uL (0.83-4.51); Absolute Neutrophil Count 15.6 X10^3/uL (2.0-7.7); Basophil# 0.05 X10^3/uL; Basophil% 0.3 % (0-1); Eosinophils% 0.6 % (0-5); Hematocrit 24.7 % (40-54); Hemoglobin 7.9 g/dL (13.0-16.5); Lymphocyte # 0.98 X10^3/ul (0.83-4.51); Lymphocyte % 5.5 % (19-41); Mean Corpuscular Hgb 23.9 pg (27.0-32.0); Mean Corpuscular Volume 74.8 fL (80-94); Mean Platelet Vol. 10.2 fl (6.2-12.0); Monocyte# 1.05 X10^3/uL; Monocyte% 5.9 % (0-10); NRBC Flagged by Analyzer 0 % (0-5); Neutrophil # 15.63 X10^3/uL (2.7-7.7); Neutrophil % 87.2 % (47-70); Platelet Count 269 K/mm3 (150-450); RBC Distribution Width CV 15.9 % (11.6-14.6); RBC Distribution Width SD 43.2 fl (35.1-43.9); White Blood Count 17.9 K/mm3 (4.4-11.0)
[2022-02-21 03:00] LABS: Partial Thromboplast Time 53.8 Seconds (24.1-36.2)
[2022-02-21 03:05] LABS: ALB/GLOB Ratio 0.6 RATIO (0.9-2.4); AST(SGOT) 26 U/L (15-37); Alanine Aminotransfer ALT/SGPT 33 U/L (16-61); Albumin, Serum 2.2 g/dL (3.2-5.0); Alkaline Phosphatase 85 U/L (45-117); Anion Gap 6 (5-15); BUN 13 mg/dL (7-18); BUN/Creat Ratio 18.4 RATIO (10-20); Calcium,Total 9.3 mg/dL (8.5-10.1); Chloride 106 mmol/L (98-107); EST Glomerular Filtration Rate 113 mL/min (>60); Est Glom Filt Rate - Afr Amer 137 mL/min (>60); Estimated Creatinine Clearance 56.78 ml/min; Globulin 3.6 g/dL (2.2-4.2); Glucose 100 mg/dL (74-106); Potassium 3.9 mmol/L (3.5-5.1); Protein, Total 5.8 g/dL (6.4-8.2); Sodium Level 136 mmol/L (136-145)
[2022-02-21] MEDS: Heparin Injection (Vial) 5,000 UNIT/ML VIAL IV ×2 (03:49→17:50)
[2022-02-21] MEDS: 0.9% Normal Saline 1,000 ML 100 ML IV ×2 (07:53→18:56)
--- NOTE | 2022-02-21 08:32 | MRI_ITS ---
EXAM: MR HEAD WITHOUT AND WITH INTRAVENOUS CONTRAST CLINICAL INDICATION: Abnormal CT head scan. TECHNIQUE: Multiplanar and multisequence MR images of the brain were obtained without and with intravenous contrast. This report was created using [email or web address] report [employer] technology. CONTRAST: IV 16ml Dotarem COMPARISON: MRI brain with and without contrast 09/23/2017. FINDINGS: BRAIN AND EXTRA-AXIAL SPACES: No diffusion restriction to suspect acute or subacute ischemic infarct. Multiple small T2 FLAIR hyperintensity foci in the white matter of both cerebral hemispheres and right paracentral pontine tegmentum are chronic white matter ischemic changes. Normal ventricles and cisterns. No abnormal metaphysis foci throughout the brain parenchyma. Following IV contrast administration, there are no abnormal enhancing lesions intraaxially and extra-axially. No intra- or extra-axial hemorrhage. No intracranial mass or mass effect. Posterior fossa structures are unremarkable. No hydrocephalus. SELLA: Unremarkable. Normal sella turcica, pituitary gland, infundibular stalk, optic chiasm and hypothalamus. AUDITORY SYSTEM: Unremarkable. The internal auditory canals are patent. BONES/JOINTS: Unremarkable. No discrete lytic or blastic abnormalities. SINUSES: Unremarkable as visualized. Clear. MASTOID AIR CELLS: Unremarkable as visualized. Clear. ORBITS: Unremarkable as visualized. Both globes, extraocular muscles, optic nerves and retrobulbar fat appear unremarkable. VASCULATURE: Unremarkable as visualized. Normal flow voids in the major intracranial circulation. MRI/Brain W/WO Contrast IMPRESSION: 1. No MRI evidence of acute or subacute ischemic infarct or remote cortical based ischemic infarct. 2. No MRI evidence of abnormal enhancing lesions intraaxially and extra-axially. 3. Chronic white matter ischemic changes in the white matter of both cerebral hemispheres and in the right paracentral pontine tegmentum. 4. No significant interval change when compared to 09/23/2017. Electronically Signed: Dariel Acosta MD at 11:00 EDT ,
[2022-02-21 09:40] LABS: Partial Thromboplast Time 62.1 Seconds (24.1-36.2)
[2022-02-21] MEDS: Pantoprazole Sodium 20 MG Tablet PO ×2 (11:22→21:26)
[2022-02-21] MEDS: Aspirin E.C. 81 MG Tablet PO (11:22)
[2022-02-21] MEDS: Metoprolol Tartrate 25 MG Tablet 12.5 MG PO ×2 (11:23→21:26)
[2022-02-21] MEDS: Folic Acid 1 MG Tablet PO ×2 (11:23→16:37)
--- NOTE | 2022-02-21 12:20 | PN.HOSP_ITS ---
Documented by User: Adelaida Sue NP, PRINTING EQUIPMENT MECHANIC-C 02/21/22 12:35 Subjective Subjective Patient seen and examined. Denies further syncope/presyncope. Denies shortness of breath. Denies other symptoms or complaints. Objective Data Objective Data Vital Signs: Vital Signs Temp Pulse Resp BP Pulse Ox 97.7 F L 77 18 136/78 H 100 02/21/22 11:10 02/21/22 11:40 02/21/22 11:10 02/21/22 11:23 02/21/22 11:10 Oxygen Delivery Method Room Air Weight: 175 lb 0.752 oz Body Mass Index (BMI) 25.0 Intake & Output: Intake and Output for Last 24 Hours 02/19/22 02/20/22 02/21/22 23:59 23:59 23:59 Intake Total 1000 / 1000 1346.48 / 1346.48 Output Total 2 / 2 Balance 1000 / 998 1344.48 / 1344.48 Lab / Micro Data Result Diagrams: 02/21/22 02:25 02/21/22 02:25 Labs: Laboratory Results - last 24 hr 02/20/22 15:43: WBC 12.2 H, RBC 3.60 L, Hgb 8.6 L, Hct 27.4 L, MCV 76.1 L, MCH 23.9 L, MCHC 31.4 L, RDW Std Deviation 43.9, RDW Coeff of Radu 15.9 H, Plt Count 304, MPV 10.3, Immature Gran % (Auto) 0.600, Neut % (Auto) 85.3 H, Lymph % (Auto) 8.3 L, [place] % (Auto) 4.9, Eos % (Auto) 0.7, Baso % (Auto) 0.2, Absolute Neuts (auto) 10.4 H, Absolute Lymphs (auto) 1.02, Nucleated RBC % 0 02/20/22 15:43: Sodium 136, Potassium 4.0, Chloride 105, Carbon Dioxide 25.0, Anion Gap 6, BUN 15, Creatinine 0.94, Estim Creat Clear Calc 58.50, Est GFR (MDRD) Af Amer 98, Est GFR (MDRD) Non-Af 81, BUN/Creatinine Ratio 15.9, Glucose 123 H, Calcium 9.8, Troponin I High Sens 7 02/20/22 16:07: Blood Type O POSITIVE, Antibody Screen NEGATIVE 02/20/22 18:30: Troponin I High Sens 6 02/20/22 20:35: PT 14.6, INR 1.2, APTT 28.9 02/20/22 20:35: Magnesium 1.8 02/20/22 20:35: B-Natriuretic Peptide 140.1 H 02/20/22 22:32: Troponin I High Sens 6 02/21/22 02:25: WBC 17.9 H, RBC 3.30 L, Hgb 7.9 L, Hct 24.7 L, MCV 74.8 L, MCH 23.9 L, MCHC 32.0, RDW Std Deviation 43.2, RDW Coeff of Radu 15.9 H, Plt Count 269, MPV 10.2, Immature Gran % (Auto) 0.500, Neut % (Auto) 87.2 H, Lymph % (Au to) 5.5 L, [place] % (Auto) 5.9, Eos % (Auto) 0.6, Baso % (Auto) 0.3, Absolute N euts (auto) 15.6 H, Absolute Lymphs (auto) 0.98, Nucleated RBC % 0 02/21/22 02:25: Sodium 136, Potassium 3.9, Chloride 106, Carbon Dioxide 24.0, Anion Gap 6, BUN 13, Creatinine 0.70, Estim Creat Clear Calc 56.78, Est GFR (MDRD) Af Amer 137, Est GFR (MDRD) Non-Af 113, BUN/Creatinine Ratio 18.4, Glucose 100, Calcium 9.3, Total Bilirubin 0.30, AST 26, ALT 33, Alkaline Phosphatase 85, Total Protein 5.8 L, Albumin 2.2 L, Globulin 3.6, Albumin/Globulin Ratio 0.6 L 02/21/22 02:25: APTT 53.8 H 02/21/22 09:00: APTT 62.1 H Micro: Microbiology 02/20/22 18:15 Stool Stool Occult Blood (ABHISHEK) - Final Radiography Diagnostic Testing: Radiology Impression Brain CT 02/20/22 16:00 IMPRESSION: 1. Questionable 1.3 cm in diameter area of low attenuation--which could represent an mild ischemic infarct without hemorrhagic component. 2. No evidence of other ischemic or hemorrhagic cerebral infarction or intracranial neoplasms. 3. No subdural, epidural, or intracerebral hematoma, hemorrhage or contusion. 4. Mild central, cortical, and cerebellar atrophy. 5. Normal calvarium and paranasal sinuses. Electronically Signed: Boris Mckee MD at 17:44 EDT , ADDENDUM: 02/20/22 1754 IMPRESSION: undefined Chest CTA 02/20/22 16:00 IMPRESSION: 1. Presence of a 5.5 cm diameter Pancoast tumor in the apical segment of the right upper lobe with erosion of the adjacent first rib. 2. Minimal pulmonary thromboembolism--small nonobstructing thrombi in a third order branch of the right lower lobe pulmonary artery and a second order branch of the left lower lobe pulmonary artery. 3. No evidence of a thoracic aortic dissection or aneurysm. 4. Mild cardiomegaly. 5. Mild mediastinal and right hilar lymphadenopathy. 6. Minimal atelectatic changes in both lower lobes. Electronically Signed: Boris Mckee MD at 18:13 EDT , Chest X-Ray 02/20/22 16:50 IMPRESSION: 1. Findings of a Pancoast tumor in the apical segment of the right upper lobe with erosion of the adjacent second rib--increased in size since the previous study of 01/27/2022. 2. Minimal bilateral lower lobe atelectatic changes. 3. No other evidence of active cardiopulmonary disease. 4. 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 5. Mild demineralization. Electronically Signed: Boris Mckee MD at 17:53 EDT , Brain MRI 02/21/22 08:32 IMPRESSION: 1. No MRI evidence of acute or subacute ischemic infarct or remote cortical based ischemic infarct. 2. No MRI evidence of abnormal enhancing lesions intraaxially and extra-axially. 3. Chronic white matter ischemic changes in the white matter of both cerebral hemispheres and in the right paracentral pontine tegmentum. 4. No significant interval change when compared to 09/23/2017. Electronically Signed: Dariel Acosta MD at 11:00 EDT , Physical Exam Const alert, oriented x3 and no apparent distress Orientation / Consciousness: awake, oriented to person, oriented to place and or iented to time HEENT normocephalic and moist oral mucous membranes Eyes PERRL, EOMs intact bilaterally and conjunctivae normal Neck no lymphadenopathy Resp normal respiratory effort and clear to auscultation bilaterally Cardio regular rate, regular rhythm and no murmurs Peripheral Pulses: pulses 2+ throughout GI normal to inspection, nondistended, normoactive bowel sounds, non-tender and non-distended Extremity normal to inspection Skin no rashes or lesions noted Lesions: no lesions Rashes: no rashes Trauma: no lacerations or abrasions Neuro CN's II-XII intact bilaterally, no focal motor deficits, no sensory deficits noted and deep tendon reflexes 2+ bilaterally Psych mental status grossly normal and affect normal Assessment & Plan Assessment/Plan (1) Syncope and collapse: (2) Acute pulmonary embolism: QUALIFIERS: Acute cor pulmonale presence: unspecified Pulmonary embolism type: unspecified Qualified Code(s): I26.99 - Other pulmonary embolism without acute cor pulmonale PLAN: 1. Syncope-troponin negative. EKG without ST-T changes. Echo and carotid ultrasound ordered. Obtain orthostatic vitals. PT/OT. 2. Acute pulmonary embolism-on heparin drip. Will need transition to oral regimen at discharge. Echo pending. 3. Abnormal brain CT-followed with MRI of brain with and without contrast which was unremarkable. 4. Recent diagnosis Pancoast tumor-following with [facility] oncology. 5. Chronic anemia/iron deficiency anemia-on IV iron as outpatient. Recent work-up including stool for occult blood and endoscopies unremarkable. 6. Chronic heart failure with preserved ejection fraction-stable, continue current medication regimen. 7. CAD with history of PCI-on aspirin, statin, metoprolol. 8. Hypertension-stable, continue home regimen. 9. Hyperlipidemia-continue statin. 10. Former tobacco use-encourage continued cessation. 11. GERD-continue PPI. DVT prophylaxis-Heparin drip This patient was seen by RAKAN Harris under the supervision of Dr. Casiano. Time spent examining patient, reviewing data and subsequent management of care: 14 minutes Documented by User: Dr. Emily Casiano MD 02/21/22 15:16 Objective Data Lab / Micro Data Result Diagrams: 02/21/22 02:25 02/21/22 02:25 Charges/Coding Addendum Addendum: Patient seen by Adelaida BLEDSOE under my supervision Patient seen and examined. HE felt well but had no active complaints. He had an uneventful night, and review of systems is otherwise negative. He hasn't had any episodes of dizziness and lightheadedness. Review of systems is otherwise negative. O/E: Const alert, oriented x3 and no apparent distress General Appearance: cooperative HEENT normocephalic, head/scalp atraumatic, hearing grossly normal bilaterally and moist oral mucous membranes Eyes PERRL, EOMs intact bilaterally and conjunctivae normal Neck no lymphadenopathy, supple and no JVD Resp normal respiratory effort and clear to auscultation bilaterally Cardio regular rate, regular rhythm, S1 normal heart sound, S2 normal heart sound and no murmurs GI normal to inspection, nondistended, normoactive bowel sounds and soft to palpation Extremity normal to inspection, full ROM and no clubbing, cyanosis or edema Skin no rashes or lesions noted Neuro oriented x3, CN's II-XII intact bilaterally and moves all extremities Sensorium / Orientation: awake and alert Psych affect normal Assessment and plan #near syncope * EKG showed acute ST changes. CT of the brain was concerning for an acute infarct. * MRI of the brain done today showed no acute intracranial process * 2D echo ordered; * PT.OT on baord * orthostatics positive * fall precautions * #Acute PE: * CTA showed PE- a small nonobstructing in a third order branch of the right lower lobe pulmonary artery and a second order branch of the left lower lobe pulmonary artery. * On heparin drip. * Transition to oral regimen. #Recently diagnosed Pancoast tumor * being worked up on outpatient basis * follow up with oncology on outpatient basis * #Chronic iron deficiency anemia * on IV iron on outpatient basis * Hb is 7.9 today; was 8.6 * has been worked up on outpatient basis with negative EGD and colonoscopy. * #CAD s/p PCI: on aspirin, statin and metoprolol #Hypertension: #Hyperlipidemia: on statin #GERD: on PPI DVT prophylaxis: on heparin drip. Rest as per Adelaida Sue PRINTING EQUIPMENT MECHANIC-C's note, which I have reviewed and endorsed. Total time I spent on the clinical care of the patient today: 20 mins, with Adelaida Sue spending 14 mins, making 34 mins. Visit Charges Inpatient E&M: 61747 Subs Hosp L2
[2022-02-21] MEDS: Atorvastatin Calcium 20 MG Tablet PO (21:26)
[2022-02-22] VITALS (9 sets, daily range): BP systolic 118–119; BP diastolic 52–59; PULSE 61–78; RESP 18; TEMP 36.6–36.7; O2SAT 95–99
[2022-02-22] MEDS: Heparin Injection (Vial) 5,000 UNIT/ML VIAL IV (00:30)
[2022-02-22] MEDS: 0.9% Normal Saline 1,000 ML 100 ML IV (04:54)
[2022-02-22 06:19] LABS: Absolute Lymphocyte Count 1.31 X10^3/uL (0.83-4.51); Absolute Neutrophil Count 15.1 X10^3/uL (2.0-7.7); Basophil# 0.05 X10^3/uL; Basophil% 0.3 % (0-1); Eosinophil# 0.23 X10^3/uL; Eosinophils% 1.3 % (0-5); Hematocrit 24.6 % (40-54); Hemoglobin 7.8 g/dL (13.0-16.5); Lymphocyte # 1.31 X10^3/ul (0.83-4.51); Lymphocyte % 7.2 % (19-41); Mean Corp Hgb Conc 31.7 g/dL (32-36); Mean Corpuscular Hgb 23.7 pg (27.0-32.0); Mean Corpuscular Volume 74.8 fL (80-94); Mean Platelet Vol. 9.7 fl (6.2-12.0); Monocyte# 1.28 X10^3/uL; Monocyte% 7.1 % (0-10); NRBC Flagged by Analyzer 0 % (0-5); Neutrophil # 15.07 X10^3/uL (2.7-7.7); Neutrophil % 83.2 % (47-70); Platelet Count 255 K/mm3 (150-450); RBC Distribution Width CV 15.9 % (11.6-14.6); Red Blood Count 3.29 M/mm3 (4.6-6.2); White Blood Count 18.1 K/mm3 (4.4-11.0)
[2022-02-22 06:27] LABS: Partial Thromboplast Time 63.7 Seconds (24.1-36.2)
[2022-02-22 06:44] LABS: Anion Gap 5 (5-15); BUN 13 mg/dL (7-18); BUN/Creat Ratio 16.8 RATIO (10-20); Calcium,Total 9.2 mg/dL (8.5-10.1); Chloride 105 mmol/L (98-107); Creatinine, Serum 0.77 mg/dL (0.70-1.30); EST Glomerular Filtration Rate 102 mL/min (>60); Est Glom Filt Rate - Afr Amer 123 mL/min (>60); Estimated Creatinine Clearance 56.78 ml/min; Glucose 91 mg/dL (74-106); Sodium Level 134 mmol/L (136-145)
[2022-02-22] MEDS: Folic Acid 1 MG Tablet PO (09:42)
[2022-02-22] MEDS: Pantoprazole Sodium 20 MG Tablet PO (09:43)
[2022-02-22] MEDS: Aspirin E.C. 81 MG Tablet PO (09:43)
[2022-02-22] MEDS: Metoprolol Tartrate 25 MG Tablet 12.5 MG PO (09:43)
--- NOTE | 2022-02-22 11:05 | CASEMGMT ---
KARINA COOL assessment: Face to Face with patient for initial transition planning/care coordination assessment. KARINA COOL introduced self and role at [facility], pt voices understanding and consents to assessment. Pt is sitting up in bed in no distress on room air. Pt is A/Ox4 and answers all questions appropriately. Pt's is at bedside during assessment. Care providers, pharmacy, and demographics verified. Presentation: Pt c/o syncopal episode while driving causing difficulty speaking/ambulating Admitting dx: Syncope, Acute PE PCP: [facility] Specialists: surjit Tapia [facility]erred [facility]acy: [facility] Insurance: MCR A/B, [employer] Prescription Benefit: [employer] Living Will/HPOA: Pt has LW/HPOA and supplied copy of HPOA to [facility] today and this was placed on chart. Pt states his , Jessica Ochoa, is HPOA. LNOK: Jessica Ochoa, ; Kaleigh Mcwilliams, daughter Living Arrangements: Pt lives alone with 1 story home and states no concerns at home. Pt is independent with ADL's. Transportation: Pt drives self and states no transportation concerns. DME/HHC: Pt has grab bars and declines need for any further DME. Pt states no hx of HHC or SNF in the past. Pt states no concerns with going home at time of discharge. Pt is retired. Pt does not smoke cigarettes and occasionally drinks ETOH. Pt states no further concerns/needs. CM to follow for Lovenox cost and any further discharge planning/needs. Advised pt to ask for CM if any further questions/concerns/needs arise, voices understanding. Pt Goal: Home Plan[place] KARINA COOL
[2022-02-22] MEDS: Enoxaparin 80 MG/0.8 ML Syringe SC (11:21)
--- NOTE | 2022-02-22 11:47 | PCM.DC ---
Discharge Instructions Diet Discharge Diet: Low fat / Low cholesterol Activity Discharge Activity: Return to Normal Activity Dressing / Incision Call your doctor if you observe: Shortness of breath, Dizziness and Chest pain Follow Up Care Test Results: Test results from this visit will be discussed in further detail at your follow-up appointment, if applicable. Discharge Plan Admission Admit Date/Time: 02/20/22 19:41 Primary Reason for Your Visit: pulmonary embolism Attending Provider: Kathia Albert Primary Care Provider: Loco Sims Consulting Providers: Anabel Nur ; Emily Casiano Instructions Additional Instructions / Restrictions: Your B12 was checked and was within normal range- 697. Discharge Orders/Prescriptions Prescriptions: New enoxaparin 80 mg/0.8 mL Syringe 80 mg subcut Q12 Qty: 8 RF: 3 Continued cholecalciferol (vitamin D3) 1,250 mcg (50,000 unit) capsule 1,250 mcg PO QWEEK RF: 0 sildenafil [Viagra] 50 mg tablet 50 mg PO DAILY PRN (Reason: Erectile Dysfunction) RF: 0 multivitamin 1 EACH tablet 1 ea PO DAILY RF: 0 atorvastatin 20 MG tablet 20 mg PO QHS RF: 0 aspirin 81 MG tablet,delayed release (DR/EC) 81 mg PO DAILY RF: 0 folic acid 1 MG tablet 1 mg PO BID RF: 0 coenzyme Q10 100 MG capsule 200 mg PO QHS RF: 0 ondansetron 4 MG tablet 4 mg PO Q8H PRN PRN (Reason: Nausea) Qty: 10 RF: 0 omeprazole 20 mg capsule,delayed release(DR/EC) 40 mg PO DAILY RF: 0 metoprolol tartrate 25 mg tablet 12.5 mg PO BID Qty: 30 RF: 6 Referrals / Follow Up: Loco Sims MD [Primary Care Provider] - In 1 Week Xavier Tapia DO [STAFF PHYSICIAN] - See Referral Note (As scheduled ) Disposition Disposition (needs filled in before D/C Order can be placed): Home, Self Care
[2022-02-22 12:33] LABS: Vitamin B12 697 pg/mL (211-911)
--- NOTE | 2022-02-22 13:21 | DS.PCM_ITS ---
Documented by User: Adelaida Sue NP, LOSS PREVENTION CONSULTANT-C 02/22/22 13:24 Providers Date of Admission: 02/20/22 Date of Discharge: 02/22/22 Primary Care Physician: Dr. Loco Sims MD Reason For Visit: SNYCOPE, ACUTE PE Diagnosis Discharge Diagnosis (1) Syncope and collapse: Status: Acute Code(s): R55 - Syncope and collapse (2) Acute pulmonary embolism: Status: Acute Code(s): I26.99 - Other pulmonary embolism without acute cor pulmonale Qualifiers: Acute cor pulmonale presence: unspecified Pulmonary embolism type: unsp ecified Qualified Code(s): I26.99 - Other pulmonary embolism without acute cor pulmonale Medications at Discharge Home Medications aspirin 81 mg PO DAILY 04/18/19 atorvastatin 20 mg PO QHS 04/18/19 coenzyme Q10 200 mg PO QHS 04/18/19 folic acid 1 mg PO BID 04/18/19 multivitamin 1 ea PO DAILY 04/18/19 cholecalciferol (vitamin D3) 1,250 mcg (50,000 unit) capsule 1,250 mcg PO QWEEK 05/28/20 sildenafil 50 mg tablet 50 mg PO DAILY PRN 05/28/20 metoprolol tartrate 25 mg tablet 12.5 mg PO BID #30 tab 10/28/20 ondansetron 4 mg PO Q8H PRN PRN #10 tab 10/16/21 omeprazole 40 mg PO DAILY 02/21/22 enoxaparin 80 mg SUBCUT Q12 #8 ml 02/22/22 Hospital Course Operations None Procedures 2-D Echocardiogram Summary of Care Provided Hospital Course: Patient is an 86-year-old male admitted 02/20/22 due to syncope. 1. Syncope-troponin negative. EKG without ST-T changes. Echo and carotid ultrasound completed, report pending and will be reviewed prior to discharge. Orthostatic vitals negative. Stable at time of discharge for further outpatient follow-up. 2. Acute pulmonary embolism-therapeutic Lovenox at discharge. Follow-up with PCP in [address]-followed with MRI of brain with and without contrast which was unremarkable. 4. Recent diagnosis Pancoast tumor-following with [facility] oncology. 5. Chronic anemia/iron deficiency anemia-on IV iron as outpatient. Recent work-up including stool for occult blood and endoscopies unremarkable. Patient states he was previously on monthly B12 injection and requested B12 check as he is unsure if he should continue injection. B12 level normal. Follow-up with primary provider. 6. Chronic heart failure with preserved ejection fraction-stable, continue current medication regimen. 7. CAD with history of PCI-on aspirin, statin, metoprolol. 8. Hypertension-stable, continue home regimen. 9. Hyperlipidemia-continue statin. 10. Former tobacco use-encourage continued cessation. 11. GERD-continue PPI. Physical Exam Const alert, oriented x3 and no apparent distress Orientation / Consciousness: awake, oriented to person, oriented to place and oriented to time HEENT normocephalic and moist oral mucous membranes Eyes PERRL, EOMs intact bilaterally and conjunctivae normal Neck no lymphadenopathy Resp normal respiratory effort and clear to auscultation bilaterally Cardio regular rate, regular rhythm and no murmurs Peripheral Pulses: pulses 2+ throughout GI normal to inspection, nondistended, normoactive bowel sounds, non-tender and non-distended Extremity normal to inspection Skin no rashes or lesions noted Lesions: no lesions Rashes: no rashes Trauma: no lacerations or abrasions Neuro CN's II-XII intact bilaterally, no focal motor deficits, no sensory deficits noted and deep tendon reflexes 2+ bilaterally Psych mental status grossly normal and affect normal Patient seen and examined prior to discharge. Physical assessment as noted above. Patient is stable for discharge with follow up recommendations as noted above. This patient was seen by RAKAN Harris under the supervision of Dr. Albert. Weight / BMI Weight Weight: 179 lb 14.355 oz Body Mass Index (BMI) 25.0 ABG / Lab / Microbiology Data Result Diagrams: 02/22/22 06:10 02/22/22 06:10 Laboratory: Laboratory Results - last 24 hr 02/20/22 15:43: Vitamin B12 697 02/21/22 17:25: APTT 45.0 H 02/21/22 23:46: APTT 52.0 H 02/22/22 06:10: WBC 18.1 H, RBC 3.29 L, Hgb 7.8 L, Hct 24.6 L, MCV 74.8 L, MCH 23.7 L, MCHC 31.7 L, RDW Std Deviation 43.0, RDW Coeff of Radu 15.9 H, Plt Count 255, MPV 9.7, Immature Gran % (Auto) 0.900, Neut % (Auto) 83.2 H, Lymph % (Auto) 7.2 L, [place] % (Auto) 7.1, Eos % (Auto) 1.3, Baso % (Auto) 0.3, Absolute Neuts (auto) 15.1 H, Absolute Lymphs (auto) 1.31, Nucleated RBC % 0 02/22/22 06:10: Sodium 134 L, Potassium 4.0, Chloride 105, Carbon Dioxide 24.0, Anion Gap 5, BUN 13, Creatinine 0.77, Estim Creat Clear Calc 56.78, Est GFR (MDRD) Af Amer 123, Est GFR (MDRD) Non-Af 102, BUN/Creatinine Ratio 16.8, Glucose 91, Calcium 9.2 02/22/22 06:10: APTT 63.7 H Microbiology: Microbiology 02/20/22 18:15 Stool Stool Occult Blood (ABHISHEK) - Final D/C Instructions Discharge Diet: Low fat / Low cholesterol Call your doctor if you observe: Shortness of breath, Dizziness and Chest pain Meaningful Use Info Meaningful Use Diagnoses (Choose all that apply): VTE VTE Anticoag overlap given w/in hospital stay or rx'd at dc?: Yes Pt receive overlap for 5 days?: Yes Discharge Plan Admission Admit Date/Time: 02/20/22 19:41 Primary Reason for Your Visit: pulmonary embolism Attending Provider: Kathia Albert Primary Care Provider: Loco Sims Consulting Providers: Anabel Nur ; Emily Casiano Instructions Additional Instructions / Restrictions: Your B12 was checked and was within normal range- 697. Discharge Orders/Prescriptions Prescriptions: New enoxaparin 80 mg/0.8 mL Syringe 80 mg subcut Q12 Qty: 8 RF: 3 Continued cholecalciferol (vitamin D3) 1,250 mcg (50,000 unit) capsule 1,250 mcg PO QWEEK RF: 0 sildenafil [Viagra] 50 mg tablet 50 mg PO DAILY PRN (Reason: Erectile Dysfunction) RF: 0 multivitamin 1 EACH tablet 1 ea PO DAILY RF: 0 atorvastatin 20 MG tablet 20 mg PO QHS RF: 0 aspirin 81 MG tablet,delayed release (DR/EC) 81 mg PO DAILY RF: 0 folic acid 1 MG tablet 1 mg PO BID RF: 0 coenzyme Q10 100 MG capsule 200 mg PO QHS RF: 0 ondansetron 4 MG tablet 4 mg PO Q8H PRN PRN (Reason: Nausea) Qty: 10 RF: 0 omeprazole 20 mg capsule,delayed release(DR/EC) 40 mg PO DAILY RF: 0 metoprolol tartrate 25 mg tablet 12.5 mg PO BID Qty: 30 RF: 6 Referrals / Follow Up: Loco Sims MD [Primary Care Provider] - In 1 Week Xavier Tapia DO [STAFF PHYSICIAN] - See Referral Note (As scheduled ) Disposition Disposition (needs filled in before D/C Order can be placed): Home, Self Care Documented by User: Dr. Kathia Albert DO 02/22/22 15:35 Providers Date of Admission: 02/20/22 Reason For Visit: SNYCOPE, ACUTE PE Medications at Discharge Home Medications aspirin 81 mg PO DAILY 04/18/19 atorvastatin 20 mg PO QHS 04/18/19 coenzyme Q10 200 mg PO QHS 04/18/19 folic acid 1 mg PO BID 04/18/19 multivitamin 1 ea PO DAILY 04/18/19 cholecalciferol (vitamin D3) 1,250 mcg (50,000 unit) capsule 1,250 mcg PO QWEEK 05/28/20 sildenafil 50 mg tablet 50 mg PO DAILY PRN 05/28/20 metoprolol tartrate 25 mg tablet 12.5 mg PO BID #30 tab 10/28/20 ondansetron 4 mg PO Q8H PRN PRN #10 tab 10/16/21 omeprazole 40 mg PO DAILY 02/21/22 enoxaparin 80 mg SUBCUT Q12 #8 ml 02/22/22 Hospital Course Operations None Procedures 2-D Echocardiogram and - (Carotid duplex/MRI brain/CTA chest) Summary of Care Provided Minutes Spent on Discharge: 42 Hospital Course: Mr. Ochoa is an 86-year-old male who presented to emergency department [facility] on 02/20/2022 with a syncopal event. The patient was evidently recently diagnosed with a Pancoast tumor and has been following with Dr. Tapia for this. He is also getting IV iron infusions for chronic anemia. He evidently was stopping for gas with his at which point he felt lightheaded and tried to get up and had tunnel vision at that time with a synco pal event. He had no trauma to his head but did had associated confusion and mild chest discomfort on the right side of his chest that prompted ED evaluation. It was noted while the EMS was trying to get him up he again noted a near syncopal sensation but did indicate he had similar episodes where nail syncopal events had occurred as far back as 15 years prior to presentation. He did indicate at admission he had an episode 2 weeks prior. In the emergency department his vital signs were unremarkable. His CBC was stable showing a hemoglobin of 8.6. His initial troponin was negative and upon cycling was stable. He was guaiac negative. A CT of his brain was performed and showed a questionable 1.3 cm diameter area of low-attenuation that was attributed to possible mild ischemic infarct without any hemorrhagic component. A follow-up MRI was done after admission and this was negative. A CTA of his chest was performed that showed a 5.5 cm diameter Pancoast tumor in the apical segment of the right upper lobe with erosion into the adjacent first rib and pulmonary thromboembolism with a small nonobstructing thrombi in a third order branch of the right lower pulmonary artery and a second order branch of the left lower pulmonary artery. His EKG was unremarkable. He was admitted to PCU and placed on a heparin drip as well as normal saline. His orthostatic vital signs were negative. An echocardiogram was performed and the EF was found to be 70% with mild right atrial enlargement and mild pulmonary artery hypertension with pulmonary artery systolic pressures at 59 mmHg. Carotid artery duplex were performed and showed calcific plaque with shadowing at the proximal right int ernal carotid artery with tortuosity of the right internal carotid artery but less than 50% stenosis of the right internal carotid and external carotid arteries as well as minimal calcific plaque of the left proximal internal artery with less than 50% stenosis of the left internal and external carotid arteries as well. There is patent and antegrade vertebral artery flow. He had a mild leukocytosis however no identified infection and the patient had no symptoms consistent with infection either and I suspect this may be reactive. The patient was transition from heparin to Lovenox after having stable hemoglobins and was discharged with subcu Lovenox having superiority to oral agents with con current malignancy. This was discussed with Dr. Tapia prior to discharge and he was in agreements with discharging on Lovenox. It is unclear of his exact etiology for his syncopal event at this time however his work-up overall is fairly benign other than the identification of pulmonary emboli which could be to blame however they are not massive and they would be less likely to cause syncope he was discharged home with subcu Lovenox and was instructed on use and injection prior to discharge on 02/22/2022. Discharge diagnoses: Syncope Acute pulmonary embolism Abnormal CT of the brain-MRI normal Leukocytosis Lung cancer/Pancoast tumor Iron deficiency anemia-chronic Compensated HFpEF CAD Hypertension Hyperlipidemia GERD History of tobacco abuse Physical Exam Const alert, oriented x3, no apparent distress, average body habitus, no limitations and well nourished Constitutional Narrative: Elderly white male, sitting up in the edge of the bed, appears well, nontoxic, watching television General Appearance: cooperative, comfortable, well kempt and well developed Orientation / Consciousness: awake Exam Limitations: no limitations HEENT normocephalic, head/scalp atraumatic and moist oral mucous membranes HEENT Narrative: Mildly hard of hearing, dentures in place, Mallampati 2, no thrush Eyes PERRL and EOMs intact bilaterally Eyes Narrative: Conjunctiva pale bilaterally, no scleral icterus Neck no lymphadenopathy, supple and no JVD Resp normal respiratory effort, no retractions, no use of accessory muscles and clear to auscultation bilaterally Resp Narrative: Clear but diminished diffusely Auscultation: Negative for crackles, rales, rhonchi or wheezes Cardio regular rate, regular rhythm, S1 normal heart sound, S2 normal heart sound, no murmurs, no rub, no gallops, no clicks and no JVD GI normal to inspection, nondistended, normoactive bowel sounds, soft to palpation, non-tender and non-distended; Negative for hepatosplenomegaly Extremity no clubbing, cyanosis or edema Skin no rashes or lesions noted, no wounds, skin turgor normal and no jaundice Skin Narrative: Skin is pale Neuro oriented x3, CN's II-XII intact bilaterally, moves all extremities and no focal motor deficits Sensorium / Orientation: awake and alert Speech: speech normal Psych affect normal Psych Narrative: Very pleasant and appropriately interactive ABG / Lab / Microbiology Data Result Diagrams: 02/22/22 06:10 02/22/22 06:10 Discharge Plan Admission Admit Date/Time: 02/20/22 19:41 Primary Reason for Your Visit: pulmonary embolism Attending Provider: Kathia Albert Primary Care Provider: Loco Sims Consulting Providers: Anabel Nur ; Emily Casiano Instructions Additional Instructions / Restrictions: Your B12 was checked and was within normal range- 697. Discharge Orders/Prescriptions Prescriptions: New enoxaparin 80 mg/0.8 mL Syringe 80 mg subcut Q12 Qty: 8 RF: 3 Continued cholecalciferol (vitamin D3) 1,250 mcg (50,000 unit) capsule 1,250 mcg PO QWEEK RF: 0 sildenafil [Viagra] 50 mg tablet 50 mg PO DAILY PRN (Reason: Erectile Dysfunction) RF: 0 multivitamin 1 EACH tablet 1 ea PO DAILY RF: 0 atorvastatin 20 MG tablet 20 mg PO QHS RF: 0 aspirin 81 MG tablet,delayed release (DR/EC) 81 mg PO DAILY RF: 0 folic acid 1 MG tablet 1 mg PO BID RF: 0 coenzyme Q10 100 MG capsule 200 mg PO QHS RF: 0 ondansetron 4 MG tablet 4 mg PO Q8H PRN PRN (Reason: Nausea) Qty: 10 RF: 0 omeprazole 20 mg capsule,delayed release(DR/EC) 40 mg PO DAILY RF: 0 metoprolol tartrate 25 mg tablet 12.5 mg PO BID Qty: 30 RF: 6 Referrals / Follow Up: Loco Sims MD [Primary Care Provider] - In 1 Week Xavier Tapia DO [STAFF PHYSICIAN] - See Referral Note (As scheduled ) Disposition Disposition (needs filled in before D/C Order can be placed): Home, Self Care Charges/Coding Visit Charges Inpatient E&M: 71283 Disch Hosp
--- NOTE | 2022-02-22 13:33 | CASEMGMT ---
Pt to be sent home on Lovenox and med e-scribed to [facility]. Call to pharmacy and per tech, pt's co-pay is $10. Pt/ updated, voice no further questions/concerns/needs. Fco COLLINS CM
--- NOTE | 2022-02-22 13:36 | CHAPLAIN ---
Type of Pastoral Visit _x__ Initial Visit ___ Follow-up Visit ___ On-call Visit ___ General Patient Visit ___ Spiritual Assessment ___ Family Conference ___ Bereavement ___ Rapid Response ___ Code Blue ___ Other (describe below) Pastoral Care Referral From _x__ Patient ___ Family ___ Nurse ___ Physician ___ User Interface Developer ___ Seed Trucker ___ Other (describe below) Sacrament/Intervention _x__ Active listening ___ Anointing ___ Judaism ___ Bereavement ___ Communion _x__ Reba exploration ___ _x__ Life review _x__ Prayer ___ Reconciliation ___ Sacrament of Sick _x__ Supportive presence ___ Wedding ___ Other (describe below) Pastoral Comments patient and spouse together in room; pt describes his diagnosis; pt states he will put it in God's hands and He is in charge; pt is willing to talk; pt shows acceptance of situation and being at peace with any outcome; spouse and patient welcome a prayer
--- NOTE | 2022-02-22 14:35 | PHA.DC.MC ---
Addendum entered and electronically signed by Violeta Gomez 02/22/22 14:41: this [facility] spoke to Dr. Albert regarding day supply and quantity on Rx. Written for 80mg q12 #8mL (5 day supply) with [address] Albert asked this [facility] to call [facility] and correct Rx to 60 syringes for 30 day supply with 3 refills. This [facility] spoke to Keisha at [facility] to make above changes. Per Keisha, co-pay is still $10 even with 60 syringes vs 10. Original Note: Pharmacy Service has performed discharge medication reconciliation and counseling for this patient. 1. ENOXAPARIN 80MG SC Q12 The patient's discharge medication list was reviewed for discrepancies and discrepancies were resolved. Home Medications aspirin 81 mg PO DAILY 04/18/19 atorvastatin 20 mg PO QHS 04/18/19 coenzyme Q10 200 mg PO QHS 04/18/19 folic acid 1 mg PO BID 04/18/19 multivitamin 1 ea PO DAILY 04/18/19 cholecalciferol (vitamin D3) 1,250 mcg (50,000 unit) capsule 1,250 mcg PO QWEEK 05/28/20 sildenafil 50 mg tablet 50 mg PO DAILY PRN 05/28/20 metoprolol tartrate 25 mg tablet 12.5 mg PO BID #30 tab 10/28/20 ondansetron 4 mg PO Q8H PRN PRN #10 tab 10/16/21 omeprazole 40 mg PO DAILY 02/21/22 enoxaparin 80 mg SUBCUT Q12 #8 ml 02/22/22 The patient was counseled on the following discharge medications and changes in medications for homegoing were reviewed. The Reason for Use, instructions for use, and potential side effects were reviewed for all new medications. The patient's questions regarding all of their medications were answered. The patient was able to verbally demonstrate an understanding of their discharge medications.
== END 2022-02-22 15:13 | disposition home or self-care (01) | DRG 176 ==
LOC: ED 19:31 → PCU 20:02
PROVIDERS: Nurse Practitioner Family; Student in an Organized Health Care Education/Training Program; Admitting Provider Family Medicine; Emergency Provider Student in an Organized Health Care Education/Training Program; PCP Family Medicine; Visit Provider Internal Medicine
DX: I26.99 Other pulmonary embolism without acute cor pulmonale (principal); C34.11 Malignant neoplasm of upper lobe, right bronchus or lung; I50.32 Chronic diastolic (congestive) heart failure; I11.0 Hypertensive heart disease with heart failure; D50.9 Iron deficiency anemia, unspecified; E78.5 Hyperlipidemia, unspecified; I25.10 Atherosclerotic heart disease of native coronary artery without angina pectoris; K21.9 Gastro-esophageal reflux disease without esophagitis; I65.23 Occlusion and stenosis of bilateral carotid arteries; Z87.891 Personal history of nicotine dependence; K59.89 Other specified functional intestinal disorders; Z79.82 Long term (current) use of aspirin
CPT/HCPCS: 36415; 70450; 70553; 71045; 71275; 80048; 80053; 82274; 82607; 83735; 83880; 84484; 85025; 85610; 85730; 86850; 86900; 86901; 93005; 93306; 93880; 97161; 97165; 99285; A9575; J7030; Q9967; A4216